=== PATIENT | female | born 1995 | race Caucasian/White ===

== ENCOUNTER → 2018-03-24 13:33 | Outpatient (CLI) | payer BC, MEDICAID, SELFPAY ==
[2018-03-24 14:31] LABS: Absolute Lymphocyte Count 1.61 X10^3/ul (0.83-4.51); Absolute Neutrophil Count 10.3 X10^3/uL (2.0-7.7); Basophil# 0.01 X10^3/uL; Basophil% 0.1 % (0-1); Eosinophil# 0.06 X10^3/uL; Eosinophils% 0.5 % (0-5); Hematocrit 41.2 % (37-47); Hemoglobin 13.4 g/dl (12.0-15.0); Lymphocyte # 1.61 X10^3/ul (4.0); Mean Corp Hgb Conc 32.5 g/gl (32-36); Mean Corpuscular Hgb 26.6 pg (27.0-32.0); Mean Corpuscular Volume 81.7 fL (81-99); Mean Platelet Vol. 9.4 fl (6.2-12.0); Monocyte# 0.45 X10^3/uL; Monocyte% 3.6 % (0-10); Neutrophil # 10.26 X10^3/uL (2.7-7.7); Neutrophil % 82.7 % (47-70); Platelet Count 271 K/mm3 (150-450); RBC Distribution Width CV 12.9 % (11.6-14.6); RBC Distribution Width SD 38.5 fl (35.1-43.9); Red Blood Count 5.04 M/mm3 (4.2-5.4); White Blood Count 12.4 K/mm3 (4.4-11.0)
[2018-03-24 14:32] LABS: POSITIVE COUNT NO; POSITIVE DIFFERENTIAL NO; POSITIVE MORPHOLOGY NO
[2018-03-24 15:52] LABS: HIV - WCH Non-Reactive (Nonreactive); Rubella IgG 57.6 IU/mL
[2018-03-24 17:52] LABS: Chlamydia Trachomatis by PCR Negative (Negative); Neisserai gonorrhoeae by PCR Negative (Negative); Probe Check PASS; Sample Adequacy Control PASS; Specimen Processing Control PASS
[2018-03-27 04:13] LABS: Rapid Plasmin Reagin (RPR) NONREACTIVE (NONREACTIVE)
[2018-03-27 15:14] LABS: HEPATITIS B SURFACE AG Negative (Negative)
[2018-03-28 14:00] LABS: HPV Reflexed? NOT INDICATED
== END ==
PROVIDERS: Referring Provider Obstetrics & Gynecology; Visit Provider Obstetrics & Gynecology
DX: Z34.90 Encounter for supervision of normal pregnancy, unspecified, unspecified trimester (principal); Z12.4 Encounter for screening for malignant neoplasm of cervix
CPT/HCPCS: 36415; 85025; 86592; 86703; 86762; 86850; 86900; 87086; 87340; 87491; 87591; 87624; 88175; G0145

== ENCOUNTER → 2018-05-22 15:59 | Outpatient (CLI) | payer BC, MEDICAID, SELFPAY ==
[2018-05-22 15:18] VITALS: BMI 31.3
[2018-06-29 12:07] LABS: AFP Value-EIA 43.6 ng/mL (.); DIA MoM Value 0.62 (.); DIA Value-EIA 96.17 pg/mL (.); DSR (By Age) 1067 (.); DSR (Second Trimester) 10000 (.); Insulin Dep Diabetes No (.); Maternal Age At EDD 24.1 yr (.); hCG MoM 0.34 (.); hCG Value 7987 mIU/mL (.)
== END ==
PROVIDERS: Referring Provider Obstetrics & Gynecology; Visit Provider Obstetrics & Gynecology
DX: Z36.89 Encounter for other specified antenatal screening (principal)
CPT/HCPCS: 36415; 82105; 82677; 84702; 86336

== ENCOUNTER 2018-06-03 16:45 | Outpatient (CLI) | payer MEDICAID, SELFPAY ==
[2018-05-22 15:18] VITALS: BMI 31.3
[2018-06-03 17:11] VITALS: BMI 32.3
== END 2018-06-03 17:40 | disposition home or self-care (01) ==
LOC: WPOUT 17:03 → WP 17:03
PROVIDERS: Referring Provider Obstetrics & Gynecology; Visit Provider Obstetrics & Gynecology
DX: R10.9 Unspecified abdominal pain (principal)
CPT/HCPCS: 59050; 99218; G0378

== ENCOUNTER 2018-06-03 17:45 | Emergency (ER) | payer BC, MEDICAID, SELFPAY ==
[2018-06-03 17:11] VITALS: BMI 32.3
[2018-06-03 17:48] VITALS: BP 90/60; PULSE 83; RESP 16; TEMP 36.3; O2SAT 99; BMI 32.3
--- NOTE | 2018-06-03 17:50 | EKG12_ITS ---
Test Reason : CP Blood Pressure : / mmHG Vent. Rate : 082 BPM Atrial Rate : 082 BPM P-R Int : 132 ms QRS Dur : 086 ms QT Int : 346 ms P-R-T Axes : 064 071 045 degrees QTc Int : 404 ms Normal sinus rhythm Normal ECG Confirmed by JONATHAN COSTA, KIRILL ([id number]), manuscript editor CHEMA ROJAS ([id number] on 06/05/2018 2:28:49 PM Referred By: PRABHJOT Confirmed By:KIRILL CASTILLO MD
--- NOTE | 2018-06-03 17:55 | NURSING ---
NO OLD EKGS
--- NOTE | 2018-06-03 18:27 | RAD_ITS ---
STUDY: X-RAY CHEST REASON FOR EXAM: Female, 22 years old. Chest pain. TECHNIQUE: Portable chest. COMPARISON: None. FINDINGS: The lungs are clear and expanded. There is no demonstrated pleural abnormality. Normal size heart. Normal mediastinum and zenon. Normal visualized pulmonary arteries. Normal visualized aortic arch and descending thoracic aorta. Normal visualized thoracic spine. Normal visualized ribs, clavicles, and shoulders. There is no demonstrated abnormality of the visualized soft tissue structures of the upper abdomen. RAD/Chest 1 View (Portable) IMPRESSION: Normal x-ray examination of the chest. Electronically Signed: Nuha Quiros MD at 19:28 EST Tel , Service support ,
[2018-06-03 18:30] LABS: Anion Gap 9 (5-15); BUN 10 mg/dL (7-18); BUN/Creat Ratio 14.9 RATIO (10-20); Calcium,Total 8.5 mg/dL (8.5-10.1); Chloride 105 mmol/L (98-107); Creatinine, Serum 0.67 mg/dL (0.55-1.02); EST Glomerular Filtration Rate 115 mL/min (>60); Est Glom Filt Rate - Afr Amer 139 mL/min (>60); Estimated Creatinine Clearance 108.03 ml/min; Glucose 91 mg/dL (74-106); Potassium 3.9 mmol/L (3.5-5.1); Sodium Level 138 mmol/L (136-145)
[2018-06-03 18:36] LABS: Absolute Lymphocyte Count 1.58 X10^3/ul (0.83-4.51); Absolute Neutrophil Count 10.2 X10^3/uL (2.0-7.7); Basophil# 0.01 X10^3/uL; Basophil% 0.1 % (0-1); Eosinophil# 0.12 X10^3/uL; Hematocrit 37.7 % (37-47); Lymphocyte # 1.58 X10^3/ul (4.0); Lymphocyte % 12.7 % (19-41); Mean Corp Hgb Conc 31.8 g/gl (32-36); Mean Corpuscular Hgb 26.5 pg (27.0-32.0); Mean Corpuscular Volume 83.2 fL (81-99); Mean Platelet Vol. 9.5 fl (6.2-12.0); Monocyte# 0.54 X10^3/uL; Monocyte% 4.3 % (0-10); Neutrophil % 81.6 % (47-70); Platelet Count 259 K/mm3 (150-450); RBC Distribution Width CV 13.1 % (11.6-14.6); RBC Distribution Width SD 39.6 fl (35.1-43.9); Red Blood Count 4.53 M/mm3 (4.2-5.4); White Blood Count 12.5 K/mm3 (4.4-11.0)
[2018-06-03 18:46] LABS: POSITIVE COUNT NO; POSITIVE DIFFERENTIAL NO; POSITIVE MORPHOLOGY NO
[2018-06-03 18:51] LABS: D-Dimer Quantitative (DVT/PE) 0.42 FEU/ug/m (0.27-0.49)
[2018-06-03 19:40] VITALS: BP 127/69; PULSE 83; RESP 11; O2SAT 100
--- NOTE | 2018-06-03 19:54 | US_ITS ---
STUDY: ABDOMINAL ULTRASOUND - RIGHT UPPER QUADRANT REASON FOR VISIT: Female, 22 years old. Right upper quadrant pain. 20 weeks . TECHNIQUE: Ultrasound evaluation of the right upper quadrant was performed with real-time and static lynch-scale imaging. TECHNICAL QUALITY: Adequate. COMPARISON: None. FINDINGS: Liver: The liver measures 15.3 cm. There is normal echogenicity of the liver. The bile ducts are within normal limits. There is hepatic color flow. The direction of portal flow is hepatopetal. There is no demonstrated mass lesion. Gallbladder: Normal distended gallbladder. The gallbladder wall measures 2 mm. There is a negative sonographic Segura's sign. There is no pericholecystic fluid. There are no gallstones. Common Bile Duct (C.B.D.): The common bile duct measures 3 mm. Pancreas: Normal size of the head, body and tail of the pancreas. There is normal echogenicity of the pancreas. There is no demonstrated pancreatic mass or cyst. Right Kidney: Normal size of the right kidney. The right kidney measures 10.2 cm. Normal renal cortex. The right cortex measures 1.4 cm. There is no demonstrated renal mass or cyst. There is no right hydronephrosis. US/Gallbladder IMPRESSION: Normal right upper quadrant ultrasound examination. Electronically Signed: Jose Marie DO at 21:23 EST Tel [phone], Service support ,
--- NOTE | 2018-06-03 20:15 | ED.VISSUMM ---
- ER Visit Summary Date of Service: 06/03/18 Chief Complaint: Abdominal pain History of Present Illness: The patient is a 22 F presenting with epigastric and right upper quadrant abdominal pain. She states that this started 1 month ago. States it progressively worsened over the past 2 days. She has had nausea and vomiting. She denies fever. She states it is worse with eating. She is 20 weeks . She went to OB triage. She states they checked the baby and everything looked okay. She was sent to the ED for further evaluation. She is . She denies vaginal bleeding. Denies other complaints. Physical Examination: Vitals are stable. Patient is afebrile. Alert no acute distress. Pulse ox 100% on room air. HEENT exam is unremarkable. Neck is supple. Lungs are clear and equal bilaterally. Heart is regular rate and rhythm. Abdomen is soft gravid with epigastric and right upper quadrant tenderness, no rebound or guarding Extremities are unremarkable. Skin is warm and dry. Remainder of exam is unremarkable. Emergency Department Course and Treatment: She is not tachycardic or hypoxic. EKG is sinus rate of 82. Chest x-ray shows no acute process. CBC shows white count 12.5. Chemistries unremarkable. Liver lipase are normal. Troponin is negative. D-dimer is normal. heart tones 144. Gallbladder ultrasound shows no acute process. On reevaluation, patient is resting comfortably. She is given prescription for Zofran. Discussed with Dr. Ledbetter who agrees with outpatient follow-up. She is advised to follow-up with her [employer]. She is advised to return to ED if worsening complaints. Disposition: Discharge home Impression: Abdominal pain, This note was generated with [employer] dictation software. It may contain incorrect words, spelling, and punctuation that were not noted in review of the chart prior to signing ED Disposition - Plan for ED Patient: Chief Complaint: Chest Pain Instructions: ED Abdominal Pain Unkn Cause Prescriptions: Ondansetron [Zofran Odt] 4 mg PO Q8H PRN PRN #10 tablet PRN Reason: Nausea Referrals: Lynette Ledbetter MD [STAFF PHYSICIAN] -
[2018-06-03 20:57] LABS: AST(SGOT) 17 U/L (15-37); Alanine Aminotransfer ALT/SGPT 32 U/L (13-56); Albumin, Serum 3.2 g/dL (3.2-5.0); Alkaline Phosphatase 74 U/L (45-117); Bilirubin, Direct < 0.05 mg/dL (0.00-0.30); Globulin 3.9 g/dL (2.2-4.2); Lipase 110 U/L (73-393); Protein, Total 7.1 g/dL (6.4-8.2)
[2018-06-03 21:25] VITALS: BP 116/76; PULSE 71; RESP 16; O2SAT 97
--- NOTE | 2018-06-03 22:13 | ED.DEP ---
ED Disposition - Plan for ED Patient: Chief Complaint: Chest Pain Instructions: ED Abdominal Pain Unkn Cause Prescriptions: Ondansetron [Zofran Odt] 4 mg PO Q8H PRN PRN #10 tablet PRN Reason: Nausea Referrals: Lynette Ledbetter MD [STAFF PHYSICIAN] -
[2018-06-03 22:30] VITALS: BP 114/62; PULSE 83; RESP 16; O2SAT 100
--- NOTE | 2018-06-11 04:01 | OB.TRI.NOTE ---
- Problem List (1) Abdominal pain affecting Status: Acute History of Present Illness Date of Service: 06/03/18 Was patient seen by the physician?: No Reason For Visit: CP Date of Service: 06/03/18 Final OJ: 10/21/18 Gestational age: 21 Weeks and 1 Days History of Present Illness: co abdominal pain seen in er Allergies tramadol Allergy (Mild, Verified 06/03/18 17:47) Unknown Laboratory Studies: Laboratory Tests 06/03/18 06/03/18 06/03/18 Range/Units 16:05 16:05 16:05 WBC (4.4-11.0) K/mm3 RBC (4.2-5.4) M/mm3 Hgb (12.0-15.0) g/dl Hct (37-47) % MCV (81-99) fL MCH (27.0-32.0) pg MCHC (32-36) g/gl RDW (11.6-14.6) % RDW Differential (35.1-43.9) fl Plt Count (150-450) K/mm3 MPV (6.2-12.0) fl Immature Gran % (Auto) (0.0-0.9) % Neut % (Auto) (47-70) % Lymph % (Auto) (19-41) % Mingo % (Auto) (0-10) % Eos % (Auto) (0-5) % Baso % (Auto) (0-1) % Absolute Neuts (auto) (2.0-7.7) X10^3/uL Absolute Lymphs (auto) (0.83-4.51) X10^3/ul Total Counted D-Dimer Quant (PE/DVT) 0.42 (0.27-0.49) FEU/ug/m Sodium 138 (136-145) mmol/L Potassium 3.9 (3.5-5.1) mmol/L Chloride 105 (98-107) mmol/L Carbon Dioxide 24.0 (21.0-32.0) mmol/L Anion Gap 9 (5-15) BUN 10 (7-18) mg/dL Creatinine 0.67 (0.55-1.02) mg/dL Estim Creat Clear Calc 108.03 ml/min Est GFR (MDRD) Af Amer 139 (>60) mL/min Est GFR (MDRD) Non-Af 115 (>60) mL/min BUN/Creatinine Ratio 14.9 (10-20) RATIO Glucose 91 (74-106) mg/dL Calcium 8.5 (8.5-10.1) mg/dL Total Bilirubin 0.20 (0.20-1.00) mg/dL Direct Bilirubin < 0.05 (0.00-0.30) mg/dL AST 17 (15-37) U/L ALT 32 (13-56) U/L Alkaline Phosphatase 74 (45-117) U/L Troponin I < 0.015 (<0.045) ng/mL Total Protein 7.1 (6.4-8.2) g/dL Albumin 3.2 (3.2-5.0) g/dL Globulin 3.9 (2.2-4.2) g/dL Lipase 110 (73-393) U/L 06/03/18 Range/Units 16:05 WBC 12.5 H (4.4-11.0) K/mm3 RBC 4.53 (4.2-5.4) M/mm3 Hgb 12.0 (12.0-15.0) g/dl Hct 37.7 (37-47) % MCV 83.2 (81-99) fL MCH 26.5 L (27.0-32.0) pg MCHC 31.8 L (32-36) g/gl RDW 13.1 (11.6-14.6) % RDW Differential 39.6 (35.1-43.9) fl Plt Count 259 (150-450) K/mm3 MPV 9.5 (6.2-12.0) fl Immature Gran % (Auto) 0.300 (0.0-0.9) % Neut % (Auto) 81.6 H (47-70) % Lymph % (Auto) 12.7 L (19-41) % Mingo % (Auto) 4.3 (0-10) % Eos % (Auto) 1.0 (0-5) % Baso % (Auto) 0.1 (0-1) % Absolute Neuts (auto) 10.2 H (2.0-7.7) X10^3/uL Absolute Lymphs (auto) 1.58 (0.83-4.51) X10^3/ul Total Counted Not Reportable D-Dimer Quant (PE/DVT) (0.27-0.49) FEU/ug/m Sodium (136-145) mmol/L Potassium (3.5-5.1) mmol/L Chloride (98-107) mmol/L Carbon Dioxide (21.0-32.0) mmol/L Anion Gap (5-15) BUN (7-18) mg/dL Creatinine (0.55-1.02) mg/dL Estim Creat Clear Calc ml/min Est GFR (MDRD) Af Amer (>60) mL/min Est GFR (MDRD) Non-Af (>60) mL/min BUN/Creatinine Ratio (10-20) RATIO Glucose (74-106) mg/dL Calcium (8.5-10.1) mg/dL Total Bilirubin (0.20-1.00) mg/dL Direct Bilirubin (0.00-0.30) mg/dL AST (15-37) U/L ALT (13-56) U/L Alkaline Phosphatase (45-117) U/L Troponin I (<0.045) ng/mL Total Protein (6.4-8.2) g/dL Albumin (3.2-5.0) g/dL Globulin (2.2-4.2) g/dL Lipase (73-393) U/L Physical Exam Vitals: Vital Signs Temp Pulse Resp BP Pulse Ox 97.4 F L 83 16 114/62 100 06/03/18 17:48 06/03/18 22:30 06/03/18 22:30 06/03/18 22:30 06/03/18 22:30 NST - FHR Rate Baby A Baseline: 140 Variability:: Moderate Accelerations:: 15 x 15 Decelerations:: None NST Reactive:: Yes FHR Category:: Category I Uterine Activity:: no regular ctx Impression/Plan abdominal pain no labor dc home reassuring status
== END 2018-06-03 22:30 | disposition home or self-care (01) ==
LOC: ED 21:02
PROVIDERS: Emergency Provider Emergency Medicine
DX: O26.892 Other specified pregnancy related conditions, second trimester (principal); R10.11 Right upper quadrant pain; R10.13 Epigastric pain; O21.2 Late vomiting of pregnancy; Z3A.20 20 weeks gestation of pregnancy
CPT/HCPCS: 59050; 71045; 76705; 80048; 80076; 83690; 84484; 85025; 85379; 93005; 99218; 99284; G0378

== ENCOUNTER → 2018-06-24 16:10 | Outpatient (CLI) | payer MEDICAID, SELFPAY ==
[2018-06-24 10:58] VITALS: BMI 32.3
[2018-06-24 17:33] LABS: Absolute Lymphocyte Count 1.63 X10^3/ul (0.83-4.51); Basophil# 0.02 X10^3/uL; Basophil% 0.2 % (0-1); Eosinophils% 0.8 % (0-5); Hematocrit 36.7 % (37-47); Hemoglobin 11.6 g/dl (12.0-15.0); Lymphocyte # 1.63 X10^3/ul (4.0); Lymphocyte % 13.3 % (19-41); Mean Corp Hgb Conc 31.6 g/gl (32-36); Mean Corpuscular Hgb 26.6 pg (27.0-32.0); Mean Corpuscular Volume 84.2 fL (81-99); Mean Platelet Vol. 10.1 fl (6.2-12.0); Monocyte# 0.47 X10^3/uL; Monocyte% 3.8 % (0-10); Neutrophil # 9.95 X10^3/uL (2.7-7.7); Neutrophil % 81.3 % (47-70); Platelet Count 286 K/mm3 (150-450); RBC Distribution Width CV 12.8 % (11.6-14.6); RBC Distribution Width SD 38.6 fl (35.1-43.9); Red Blood Count 4.36 M/mm3 (4.2-5.4); White Blood Count 12.2 K/mm3 (4.4-11.0)
[2018-06-24 17:37] LABS: POSITIVE COUNT NO; POSITIVE DIFFERENTIAL NO; POSITIVE MORPHOLOGY NO
[2018-06-24 18:49] LABS: HIV - WCH Non-Reactive (Nonreactive); Rubella IgG 55.2 IU/mL
[2018-06-26 01:11] LABS: Rapid Plasmin Reagin (RPR) NONREACTIVE (NONREACTIVE)
[2018-06-26 11:12] LABS: HEPATITIS B SURFACE AG Negative (Negative)
--- OUTSIDE RECORDS SUMMARY | 2018-08-26 18:41 | XMS RPT_ITS ---
:1995 Author Organization OHIP Support Name Relationship Address Phone TARYN COYNE Unavailable Unavailable + [place] [address] ROSELINE BARTHOLOMEW Unavailable [address] + [place] [address] UE Unavailable Unavailable Unavailable DORETHA TARYN Unavailable 0 + [place] [address] ROSELINE BARTHOLOMEW Unavailable [address] + [place] [address] UE Unavailable Unavailable Unavailable UZMA COYNEANNE Unavailable Unavailable + [place] [address] ROSELINE BARTHOLOMEW Unavailable [address] + [place] [address] UE Unavailable Unavailable Unavailable DORETHA, TARYN Unavailable 0 + [place] [address] ROSELINE BARTHOLOMEW Unavailable [address] + [place] [address] UE Unavailable Unavailable Unavailable UZMA COYNEANNE Unavailable Unavailable + [place] [address] ROSELINE BARTHOLOMEW Unavailable [address] + [place] [address] UE Unavailable Unavailable Unavailable DORETHA, TARYN Unavailable 0 + [place] [address] ROSELINE BARTHOLOMEW Unavailable [address] + [place] [address] UE Unavailable Unavailable Unavailable DORETHA, TARYN Unavailable [address] + [place] [address] ROSELINE BARTHOLOMEW Unavailable [address] + [place] [address] UE Unavailable Unavailable Unavailable COYNE TARYN Unavailable [address] + [place] [address] ROSELINE BARTHOLOMEW Unavailable [address] + [place] [address] UE Unavailable Unavailable Unavailable COYNE, TARYN Unavailable [address] + [place] [address] ROSELINE BARTHOLOMEW Unavailable [address] + [place] [address] UE Unavailable Unavailable Unavailable COYNE, TARYN Unavailable [address] + [place] [address] UE Unavailable Unavailable Unavailable NOT GIVEN Unavailable Unavailable Unavailable ROSELINE BARTHOLOMEW Unavailable Unavailable + [facility] Unavailable [address] + [place] [address] COYNE, UZMA Unavailable [address] + [place] [address] COYNE, UZMA Unavailable [address] + [place] [address] [facility] Unavailable [address] + [place] [address] COYNE, UZMA Unavailable [address] + [place] [address] COYNE, UZMA Unavailable [address] + [place] [address] Care Team Providers Name Role Phone Lynette Ledbetter Attending Unavailable Primay Care Physicia, No Referring Unavailable Lynette Ledbetter Attending Unavailable Lynette Ledbetter Referring Unavailable Primay Care Physicia, No Primary Care Unavailable Lynette Ledbetter Attending Unavailable Lynette Ledbetter Referring Unavailable Primay Care Physicia, No Primary Care Unavailable Primay Care Physicia, No Primary Care Unavailable Katina Morillo Attending Unavailable Lynette Ledbetter Attending Unavailable Primay Care Physicia, No Primary Care Unavailable Lynette Ledbetter Attending Unavailable Primay Care Physicia, No Referring Unavailable Lynette Ledbetter Attending Unavailable Lynette Ledbetter Referring Unavailable Primay Care Physicia, No Primary Care Unavailable Marcanthony, Lynette Attending Unavailable Primay Care Physicia, No Referring Unavailable [place], Michelle Attending Unavailable Primay Care Physicia, No Referring Unavailable [place], Michelle Attending Unavailable Natalia, Michelle Referring Unavailable Primay Care Physicia, No Primary Care Unavailable KEANE, MIGUEL A. Primary Care Unavailable GUERA.CH Attending Unavailable GUERA.CH Attending Unavailable MIGUEL KEANE A. Primary Care Unavailable ELVIN, DR ARIK Bradshaw Admitting Unavailable OCONNOR, DR ARIK Bradshaw Attending Unavailable OCONNOR, DR ARIK Bradshaw Primary Care Unavailable NO, DOCTOR ON Consulting Unavailable NO, DOCTOR ON Referring Unavailable JUAN AGUILAR Attending Unavailable LEOBARDO PAULSON Attending Unavailable KAYANTHONY, LYNETTE E Referring Unavailable NO PRIMARY CARE, Primary Care Unavailable PROBLEMS PROBLEMS DATE TYPE CONDITION / CODE ATTENDING STATUS SOURCE 06/24/2018 Unknown R10.9 - Unspecified [place], Active [place] abdominal pain / [facility] R10.9(ICD-10) Hospital Repository 06/24/2018 Unknown Z36.89 - Encounter Marcanthony, Active [place] for other specified [facility] screening Hospital / Z36.89(ICD-10) Repository 05/22/2018 Unknown Z34.01 - Encounter Marcanthony, Active [place] for supervision of [facility] normal first Hospital , first Repository trimester / Z34.01(ICD-10) 05/22/2018 Unknown Z3A.18 - 18 weeks Marcanthony, Active [place] gestation of [facility] / Hospital Z3A.18(ICD-10) Repository 04/30/2018 Unknown Z3A.15 - 15 weeks [facility] [place] gestation of [facility] / Hospital Z3A.15(ICD-10) Repository 03/25/2018 Unknown Z34.90 - Encounter Marcanthony, Active [place] for supervision of [facility] normal , Hospital unspecified, Repository unspecified trimester / Z34.90(ICD-10) 03/25/2018 Unknown Z12.4 - Encounter Marcanthony, Active [place] for screening for [facility] malignant neoplasm Hospital of cervix / Repository Z12.4(ICD-10) 09/11/2017 Admitting Unknown / LAUREN, Active [facility] diagnosis UNK(Unknown) JUAN [facility] Repository 05/18/2018 Working LOWER ABDOMINAL GUERA.CH Active [place] diagnosis PAIN, UNSPECIFIED / [facility] R10.30(ICD-10) Hospital Repository 05/18/2018 Working OTHER SPECIFIED GUERA.CH Active [place] diagnosis POSTPROCEDURAL [facility] / Hospital Z98.890(ICD-10) Repository 05/18/2018 Working ALLERGY STATUS TO GUERA.CH Active [place] diagnosis NARCOTIC AGENT [facility] / Hospital Z88.5(ICD-10) Repository PROCEDURES PROCEDURES No Procedure Records FoundRESULTS RESULTS CBC W/DIFF, AUTOMATED Collected: 06/24/2018 Status: F Source: [place] 4:21 PM [facility] REPOSITORY TYPE CODE TESTS RESULT OUT OF RANGE REFERENCE UNITS LAB L100.1000 4.4-11.0 K/mm3 High WBC 12.2 LAB L100.1200 4.2-5.4 M/mm3 Normal RBC 4.36 LAB L100.1300 12.0-15.0 g/dl Low HGB 11.6 LAB L100.1400 37-47 % Low HCT 36.7 LAB L100.1500 81-99 fL Normal MCV 84.2 LAB L100.1600 27.0-32.0 pg Low MCH 26.6 LAB L100.1700 32-36 g/gl Low MCHC 31.6 LAB L100.1810 11.6-14.6 % Normal RDW CV 12.8 LAB L100.1820 35.1-43.9 fl Normal RDW SD 38.6 LAB L100.1900 150-450 K/mm3 Normal PLT 286 LAB L100.2000 6.2-12.0 fl Normal MPV 10.1 LAB L100.2100 47-70 % High NEUT% 81.3 LAB L100.2200 19-41 % Low LY% 13.3 LAB L100.2300 0-10 % Normal MONO% 3.8 LAB L100.2400 0-5 % Normal EO% 0.8 LAB L100.2500 0-1 % Normal BASO% 0.2 LAB L100.2550 0.0-0.9 % Normal IM GRAN % 0.600 Result Comment: IG% - Immature Granulocytes (promyelocytes, myelocytes and metamyelocytes) > 1% indicates that a LEFT SHIFT is Present. LAB L100.2620 2.0-7.7 X10 3/uL High Absolute Neut 10.0 LAB L100.2720 0.83-4.51 X10 3/ul Normal Absolute Lymph 1.63 Performed By: #### L100.0100 #### [facility] [address] [facility] [facility] [place], [place], [id number] TYPE AND SCREEN Collected: 06/24/2018 Status: F Source: [place] 4:21 PM [facility] REPOSITORY Order Comment: Reason for Type AND Screen/Red Cells: TYPE CODE TESTS RESULT OUT OF RANGE REFERENCE UNITS LAB B10.0800 O Normal BLOOD TYPE GEL POSITIVE LAB B100.4000 Normal Antibody NEGATIVE Screen Performed By: #### B101.7450 #### [facility] [place], [address] RUBELLA IGG Collected: 06/24/2018 Status: F Source: [place] 4:21 PM [facility] REPOSITORY TYPE CODE TESTS RESULT OUT OF RANGE REFERENCE UNITS LAB L509.4000 IU/mL Normal Rubella IgG 55.2 Result Comment: Antibody results Interpretation of Immune Status < 5 IU/ml Presumed Non-immune 5 - < 10 IU/ml Equivocal > or = 10 IU/ml Presumed Immune Performed By: #### L509.4000, L3890.6005 #### [facility] [facility]. [facility] [id number] HIV - [facility] Collected: 06/24/2018 Status: F Source: [place] 4:21 PM [facility] REPOSITORY TYPE CODE TESTS RESULT OUT OF RANGE REFERENCE UNITS LAB L3890.6005 Nonreactive Normal HIV - [facility] Non-Reactive Performed By: #### L509.4000, L3890.6005 #### [facility] [facility] [address] [facility] [address] RAPID PLASMIN REAGIN Collected: 06/24/2018 Status: F Source: [place] (RPR) 4:21 PM [facility] REPOSITORY TYPE CODE TESTS RESULT OUT OF REFERENCE UNITS RANGE LAB L700.5000 NONREACTIVE NONREACTIVE Normal RPR Performed By: #### L700.5000 #### [facility] [address] [place], [place], [id number] HEPATITIS B SURFACE Collected: 06/24/2018 Status: F Source: [place] AG 4:21 PM [facility] REPOSITORY TYPE CODE TESTS RESULT OUT OF RANGE REFERENCE UNITS LAB L3100.0400 Negative Normal HB Negative SURF AG Result Comment: Performed at: - [facility] [id number] Campus Dean: Darren Soliman PhD, Phone: [phone] Performed By: #### L3100.0390 #### [facility] (refer to report for specific site) refer to report for address and phone number DIGESTION OPERATOR OFFICE VISIT Observed: 06/24/2018 Status: F Source: [place] REPORT 11:11 AM [facility] REPOSITORY [facility] [address] [place] [address] OFFICE VISIT Date of Service: 06/24/18 MR#: [id number] Acct: [id number] Name: DORETHAANKUR L Rep #: [id number] : 1995 Provider: KURT Fisher Age/Sex: 22/F Location: [facility] Status: Signed Intake Vital Signs06/24/18 Body Mass Index (BMI) 32.3 06/24/18 Height 5 ft 3 in 06/24/18 Weight: 184 lb 8 oz 06/24/18 Body Mass Index (BMI) 32.6 06/24/18 Blood Pressure 110/74 Intake Visit Reasons: 22 weeks Slipcover Cutter Required: No Accompanied by: mother Is patient in pain?: No Allergies tramadol Allergy (Mild, Verified 06/24/18 10:46) Unknown Medications ondansetron HCl 4 mg tablet 4 mg PO BID-TID PRN #60 tab 05/22/18 [Rx Confirmed 06/24/18] vitamin#30 30 mg iron-10 mg iron-folic acid 1 mg- omg3 capsule 1 cap PO DAILY cap 05/22/18 [History Confirmed 06/24/18] Ondansetron [Zofran Odt] 4 mg PO Q8H PRN PRN #10 tab 06/03/18 [Rx Confirmed 06/24/18] Last Menstral Period: 01/14/18 Zika: Zika virus screening: Negative : No PFSH PFSH Family History Grandfather Diabetes Myocardial infarction CVA (cerebral vascular accident) Social History Smoking Status: Never smoker alcohol intake: never substance use type: does not use caffeine: Yes what type of physical activity do you participate in: walking seatbelt use: always do you feel safe at home: Yes additional social history: Mony Ojeda Patient is currently unemployed Pregancy History 1 Elective abortions Hx Para Spontaneous abortions HPI 22 weeks: Details: ANKUR COYNE is a 22 year old who presents for routine OB visit. OB Visit OJ Calculator Estimated Delivery Date 10/21/18 Based on LMP (uncertain) 01/14/18 Current WG 23w 0d Number 1 Expected Delivery Route/Plan Specific Issue/Plans flu vaccine: declines tdap vaccine: [] rhogam: NA LARC form signed: declines labor support person: Roseline pain management: epidural cut cord/dad catch: cord : yes PP control planned: [] special requests: [] Initial Weight: 177 lb Date Weight BP Urine PrFHR FuHt Pres MoCTX DilationFetal StVisit NoProviderComments E ot v te GA G Effac lucose ed Visit Notes Visit Date: 06/24/18 No VB, LOF. Acid reflux worsening. Michelle Fisher NP-Leeann on 06/24/18 Visit Date: 05/22/18 no vb cramping Lynette Ledbetter MD on 05/22/18 Visit Date: 04/30/18 nausea improved no vb cramping Lynette Ledbetter MD on 04/30/18 Diagnostics Diagnostics Labs Blood Type O POSITIVE 03/24/18 Antibody Screen NEGATIVE 03/24/18 Hct 37.7 % (37-47) 06/03/18 Hgb 12.0 g/dl (12.0-15.0) 06/03/18 Rubella IgG Antibody 57.6 IU/mL 03/24/18 RPR NONREACTIVE (NONREACTIVE) 03/24/18 Hep Bs Antigen Negative (Negative) 03/24/18 Chlam trachomat DNA PCR Negative (Negative) 03/24/18 N.gonorrhoeae DNA (PCR) Negative (Negative) 03/24/18 Details: HIV: Urine Culture: Sequential Screen: NIPT Screen: ROS Const Reports system reviewed and no additional complaints, except as docu GI Denies nausea, Denies vomiting, Denies abdominal pain Exam Const General: cooperative Nutritional Appearance: well nourished GI Palpation: soft, nontender, other (gravid) Results BMSUA2 Office Urine Glucose Negative Last Edit by Natasha Loomis on 06/24/18 10:59 Office Urine Protein Negative Last Edit by Natasha Loomis on 06/24/18 10:59 Assessment AND Plan Problems 1. Encounter for supervision of normal first in first trimester Z34.01 PRR OJ 10/21/18 Candelaria Tom Fiance:Roseline Bartholomew 2. 23 weeks gestation of Z3A.23 quad screen planned. carrier screening declined. anatomy scan ordered. Plan Orders placed: none Try pepcid for reflux Reviewed of labor precautions, movement/kick counts ACOG trimester education reviewed and updated See problem list details for updated plan of care Gestational age appropriate handout given RTO: 4 weeks Orders Orders: Coding Level of Care Code Off vis,est,level 3 Diagnoses Encounter for supervision of normal first in first trimester Z34.01 Trimester: first trimester 23 weeks gestation of Z3A.23 Weeks of gestation: 23 weeks 06/24/18 1111 <Electronically signed by Michelle LANE> Date Michelle LANE Cosigner Signature: Date (if applicable) CC: 12 LEAD ELECTROCARDIOGRAM Observed: 06/05/2018 Status: F Source: [place] 2:29 PM [facility] REPOSITORY [facility] Cardiovascular Services [address] [place] [address] 12 Lead EKG 06/03/18 1808 MR#: [id number] Acct: [id number] Name: ANKUR COYNE Rep #: [id number] : 1995 22 From: Mervin Castillo MD Attending Dr: Status: DEP ER Ordering Dr: Katina Morillo MD Date: 06/03/18 Location: ED Sex: F C Admitted: Test Reason : CP Blood Pressure : / mmHG Vent. Rate : 082 BPM Atrial Rate : 082 BPM P-R Int : 132 ms QRS Dur : 086 ms QT Int : 346 ms P-R-T Axes : 064 071 045 degrees QTc Int : 404 ms Normal sinus rhythm Normal ECG Confirmed by JONATHAN COSTA, MERVIN ([id number]), photograph editor CHEMA ROJAS ([id number]) on 06/05/2018 2:28:49 PM Referred By: PRABHJOT Confirmed By:MERVIN CASTILLO MD 06/05/18 1428 Date Mervin Castillo MD CC: No Primary Care Physician; Katina Morillo MD Signed EMERGENCY DEPARTMENT Observed: 06/03/2018 Status: F Source: [place] SUMMARY 10:18 PM [facility] REPOSITORY [facility] Medical Records Department [address] [place] [address] Emergency Department Summary 06/03/182014 MR#: [id number] Acct: [id number] Name: ANKUR COYNE Rep #: [id number] : 1995 22 From: Katina Morillo MD PCP: Care Physician, No Primary Status: REG ER - ER Visit Summary Date of Service: 06/03/18 Chief Complaint: Abdominal pain History of Present Illness: The patient is a 22 F presenting with epigastric and right upper quadrant abdominal pain. She states that this started 1 month ago. States it progressively worsened over the past 2 days. She has had nausea and vomiting. She denies fever. She states it is worse with eating. She is 20 weeks . She went to OB triage. She states they checked the baby and everything looked okay. She was sent to the ED for further evaluation. She is . She denies vaginal bleeding. Denies other complaints. Physical Examination: Vitals are stable. Patient is afebrile. Alert no acute distress. Pulse ox 100% on room air. HEENT exam is unremarkable. Neck is supple. Lungs are clear and equal bilaterally. Heart is regular rate and rhythm. Abdomen is soft gravid with epigastric and right upper quadrant tenderness, no rebound or guarding Extremities are unremarkable. Skin is warm and dry. Remainder of exam is unremarkable. Emergency Department Course and Treatment: She is not tachycardic or hypoxic. EKG is sinus rate of 82. Chest x-ray shows no acute process. CBC shows white count 12.5. Chemistries unremarkable. Liver lipase are normal. Troponin is negative. D-dimer is normal. heart tones 144. Gallbladder ultrasound shows no acute process. On reevaluation, patient is resting comfortably. She is given prescription for Zofran. Discussed with Dr. Ledbetter who agrees with outpatient follow-up. She is advised to follow-up with her DIGESTION OPERATOR. She is advised to return to ED if worsening complaints. Disposition: Discharge home Impression: Abdominal pain, This note was generated with [employer] dictation software. It may contain incorrect words, spelling, and punctuation that were not noted in review of the chart prior to signing ED Disposition - Plan for ED Patient: Chief Complaint: Chest Pain Instructions: ED Abdominal Pain Unkn Cause Prescriptions: Ondansetron [Zofran Odt] 4 mg PO Q8H PRN PRN #10 tablet PRN Reason: Nausea Referrals: Lynette Ledbetter MD [STAFF PHYSICIAN] - What to do if you have Problems For any increased pain, shortness of breath, bleeding, nausea or vomiting, chest pain, or any unexpected problems, contact your Primary Care Provider. Call [facility] ([phone]) or report to the closest Emergency Room. Call 911 if necessary. 06/03/18 5569 <Electronically signed by Katina Morillo MD> Date Katina Morillo MD Cosigner Signature (If Indicated): Date CC: No Primary Care Physician DISCHARGE INSTRUCTION Observed: 06/03/2018 Status: F Source: [place] 10:13 PM [facility] REPOSITORY [facility] Medical Records Department [address] [place] [address] Discharge Instruction 06/03/182212 MR#: [id number] Acct: [id number] Name: ANKUR COYNE Rep #: [id number] : 1995 22 From: Katina Morillo MD PCP: Care Physician, No Primary Status: REG ER ED Disposition - Plan for ED Patient: Chief Complaint: Chest Pain Instructions: ED Abdominal Pain Unkn Cause Prescriptions: Ondansetron [Zofran Odt] 4 mg PO Q8H PRN PRN #10 tablet PRN Reason: Nausea Referrals: Lynette Ledbetter MD [STAFF PHYSICIAN] - What to do if you have Problems For any increased pain, shortness of breath, bleeding, nausea or vomiting, chest pain, or any unexpected problems, contact your Primary Care Provider. Call [facility] ([phone]) or report to the closest Emergency Room. Call 911 if necessary. 06/03/182212 <Electronically signed by Katina Morillo MD> Date Katina Morillo MD Cosigner Signature (If Indicated): Date CC: No Primary Care Physician GALLBLADDER Observed: 06/03/2018 Status: F Source: [place] 7:54 PM [facility] REPOSITORY [facility] Imaging Services [address] [place] [address] Gallbladder MR#: [id number] Acct: [id number] Name: MARIE COYNEDEON Cardona Rep #: [id number] : 1995 F 22 From: Jose Marie DO PCP: Care Physician, No Primary Status: REG ER Study: Gallbladder Date of Exam: 06/03/18 Exam# [id number] Ordering Dr: Katina Morillo MD STUDY: ABDOMINAL ULTRASOUND - RIGHT UPPER QUADRANT REASON FOR VISIT: Female, 22 years old. Right upper quadrant pain. 20 weeks . TECHNIQUE: Ultrasound evaluation of the right upper quadrant was performed with real-time and static lynch-scale imaging. TECHNICAL QUALITY: Adequate. COMPARISON: None. FINDINGS: Liver: The liver measures 15.3 cm. There is normal echogenicity of the liver. The bile ducts are within normal limits. There is hepatic color flow. The direction of portal flow is hepatopetal. There is no demonstrated mass lesion. Gallbladder: Normal distended gallbladder. The gallbladder wall measures 2 mm. There is a negative sonographic Segura's sign. There is no pericholecystic fluid. There are no gallstones. Common Bile Duct (C.B.D.): The common bile duct measures 3 mm. Pancreas: Normal size of the head, body and tail of the pancreas. There is normal echogenicity of the pancreas. There is no demonstrated pancreatic mass or cyst. Right Kidney: Normal size of the right kidney. The right kidney measures 10.2 cm. Normal renal cortex. The right cortex measures 1.4 cm. There is no demonstrated renal mass or cyst. There is no right hydronephrosis. US/Gallbladder IMPRESSION: Normal right upper quadrant ultrasound examination. Electronically Signed: Jose Marie DO at 21:23 EST Tel [phone], Service support , CC: No Primary Care Physician; Katina Morillo MD Mba Internship: Signed CHEST 1 VIEW Observed: 06/03/2018 Status: F Source: [place] (PORTABLE) 5:51 PM [facility] REPOSITORY [facility] Imaging Services [facility] [place] [address] Chest 1 View (Portable) MR#: [id number] Acct: [id number] Name: ANKUR COYNE Rep #: [id number] : 1995 F 22 From: Nuha Quiros MD PCP: Lynette Ledbetter MD Status: PRE ER Study: Chest 1 View (Portable) Date of Exam: 06/03/18 Exam# [id number] Ordering Dr: Provider,Ed P. STUDY: X-RAY CHEST REASON FOR EXAM: Female, 22 years old. Chest pain. TECHNIQUE: Portable chest. COMPARISON: None. FINDINGS: The lungs are clear and expanded. There is no demonstrated pleural abnormality. Normal size heart. Normal mediastinum and zenon. Normal visualized pulmonary arteries. Normal visualized aortic arch and descending thoracic aorta. Normal visualized thoracic spine. Normal visualized ribs, clavicles, and shoulders. There is no demonstrated abnormality of the visualized soft tissue structures of the upper abdomen. RAD/Chest 1 View (Portable) IMPRESSION: Normal x-ray examination of the chest. Electronically Signed: Nuha Quiros MD at 19:28 EST Tel , Service support , CC: ED PHYSICIAN PROVIDER; Lynette Ledbetter MD Mba Internship: Signed BASIC METABOLIC Collected: 06/03/2018 Status: F Source: [place] PROFILE (BMP) 4:05 PM [facility] REPOSITORY TYPE CODE TESTS RESULT OUT OF RANGE REFERENCE UNITS LAB L501.0100 74-106 mg/dL Normal GLU 91 Result Comment: Please note revised GLUCOSE reference range effective 2017. LAB L501.1000 7-18 mg/dL Normal BUN 10 LAB L501.1100 0.55-1.02 mg/dL Normal CREAT,SERUM 0.67 Result Comment: The validity of the calculated GFR AND GFRAA in patients over 70 years has not been determined. Clinical correlation is essential. LAB L501.1110 >60 mL/min Normal EST GFR 115 Result Comment: Non- GFR Calc LAB L501.1115 >60 mL/min Normal EST GFR - AA 139 Result Comment: GFR Calc LAB L501.1255 ml/min Normal Estimated CRCL 108.03 LAB L501.1300 10-20 RATIO BUN/CRE Normal 14.9 LAB L501.2200 8.5-10 mg/dL .1 CA Normal 8.5 LAB L501.5300 136-14 mmol/L 5 NA Normal 138 LAB L501.5600 3.5-5. mmol/L 1 K Normal 3.9 LAB L501.5900 98-107 mmol/L CL Normal 105 LAB L501.6100 21.0-3 mmol/L 2.0 CO2 Normal 24.0 LAB L501.6200 5-15 GAP Normal 9 Performed By: #### L500.2500, L501.4010 #### [facility] [address] [place], [place], [address] TROPONIN-I Collected: 06/03/2018 Status: F Source: [place] 4:05 PM [facility] REPOSITORY TYPE CODE TESTS RESULT OUT OF RANGE REFERENCE UNITS LAB L501.4010 <0.045 ng/mL Normal < 0.015 TROPONIN-I Result Comment: TROPONIN-I EXPECTED VALUES <0.045 Negative 0.045 - 0.590 Consistent with Cardiac Damage > OR = 0.600 Critical Value Not every elevated troponin is indicative of CO. These values should be used with clinical judgement in examining the patient's clinical picture for diagnosis. To establish a diagnosis of CO versus myocardial injury, there must be a demonstrated rise and/or fall in the troponin values, in addition to ischemic symptoms, EKG changes, new regional wall motion abnormality, and/or angiographical evidence. PLEASE NOTE: REFERENCE RANGES EDITED 17 Performed By: #### L500.2500, L501.4010 #### [facility] [address] [place], [place], [id number] CBC W/DIFF, AUTOMATED Collected: 06/03/2018 Status: F Source: [place] 4:05 [facility] REPOSITORY TYPE CODE TESTS RESULT OUT OF RANGE REFERENCE UNITS LAB L100.1000 4.4-11.0 K/mm3 High WBC 12.5 LAB L100.1200 4.2-5.4 M/mm3 Normal RBC 4.53 LAB L100.1300 12.0-15.0 g/dl Normal HGB 12.0 LAB L100.1400 37-47 % Normal HCT 37.7 LAB L100.1500 81-99 fL Normal MCV 83.2 LAB L100.1600 27.0-32.0 pg Low MCH 26.5 LAB L100.1700 32-36 g/gl Low MCHC 31.8 LAB L100.1810 11.6-14.6 % Normal RDW CV 13.1 LAB L100.1820 35.1-43.9 fl Normal RDW SD 39.6 LAB L100.1900 150-450 K/mm3 Normal PLT 259 LAB L100.2000 6.2-12.0 fl Normal MPV 9.5 LAB L100.2100 47-70 % High NEUT% 81.6 LAB L100.2200 19-41 % Low LY% 12.7 LAB L100.2300 0-10 % Normal MONO% 4.3 LAB L100.2400 0-5 % Normal EO% 1.0 LAB L100.2500 0-1 % Normal BASO% 0.1 LAB L100.2550 0.0-0.9 % Normal IM GRAN % 0.300 Result Comment: IG% - Immature Granulocytes (promyelocytes, myelocytes and metamyelocytes) > 1% indicates that a LEFT SHIFT is Present. LAB L100.2620 2.0-7.7 X10 3/uL High Absolute Neut 10.2 LAB L100.2720 0.83-4.51 X10 3/ul Normal Absolute Lymph 1.58 Performed By: #### L100.0100 #### [facility] [address] [place], [place], [id number] D-DIMER QUANTITATIVE Collected: 06/03/2018 Status: F Source: [place] (DVT/PE) 4:05 PM [facility] REPOSITORY TYPE CODE TESTS RESULT OUT OF RANGE REFERENCE UNITS LAB L300.8000 0.27-0.49 FEU/ug/m Normal D-DIMER 0.42 QUANT Result Comment: NORMAL D-Dimer level (<0.50) indicates no DVT or PE. Performed By: #### L300.8000 #### [facility] [address] [place], [place], [id number] LIVER PROFILE Collected: 06/03/2018 Status: F Source: [place] 4:05 PM [facility] REPOSITORY TYPE CODE TESTS RESULT OUT OF RANGE REFERENCE UNITS LAB L501.1500 6.4-8.2 g/dL Normal T PROT 7.1 LAB L501.1800 3.2-5.0 g/dL Normal ALB 3.2 LAB L501.1950 2.2-4.2 g/dL Normal GLOB 3.9 LAB L501.4100 15-37 U/L Normal AST 17 LAB L501.4305 45-117 U/L Normal ALK P 74 LAB L501.4405 13-56 U/L Normal ALT 32 LAB L501.4600 0.20-1.00 mg/dL Normal T BILI 0.20 LAB L501.4700 0.00-0.30 mg/dL Normal D BILI < 0.05 Performed By: #### L500.3400, L501.2450 #### [facility] [address] [place], [address] LIPASE Collected: 06/03/2018 Status: F Source: [place] 4:05 PM [facility] REPOSITORY TYPE CODE TESTS RESULT OUT OF RANGE REFERENCE UNITS LAB L501.2450 73-393 U/L Normal LIPASE 110 Performed By: #### L500.3400, L501.2450 #### [facility] [address] [place], [address] DIGESTION OPERATOR OFFICE VISIT Observed: 05/22/2018 Status: F Source: [place] REPORT 3:44 PM [facility] REPOSITORY [facility] [address] [place] [address] OFFICE VISIT Date of Service: 05/22/18 MR#: [id number] Acct: [id number] Name: ANKUR COYNE Rep #: [id number] : 1995 Provider: Lynette Ledbetter MD Age/Sex: 22/F Location: [facility] Status: Signed Intake Vital Signs05/22/18 Body Mass Index (BMI) 31.3 05/22/18 Height 5 ft 3 in 05/22/18 Weight: 178 lb 05/22/18 Body Mass Index (BMI) 31.5 05/22/18 Blood Pressure 120/80 Intake Visit Reasons: 17 weeks, Quad Screen Chief Complaint: est ob Slipcover Cutter Required: No Is patient in pain?: No Allergies tramadol Allergy (Mild, Verified 05/22/18 15:17) Unknown Medications ondansetron HCl 4 mg tablet 4 mg PO BID-TID PRN #60 tab 05/22/18 [Rx Confirmed 05/22/18] vitamin#30 30 mg iron-10 mg iron-folic acid 1 mg- omg3 capsule cap PO cap 05/22/18 [History Confirmed 05/22/18] Last Menstral Period: 01/14/18 Zika: Zika virus screening: Negative : No PFSH PFSH Family History Grandfather Diabetes Myocardial infarction CVA (cerebral vascular accident) Social History Smoking Status: Never smoker alcohol intake: never substance use type: does not use caffeine: Yes what type of physical activity do you participate in: walking seatbelt use: always do you feel safe at home: Yes additional social history: [employer] Patient is currently unemployed Pregancy History 1 Elective abortions Hx Para Spontaneous abortions HPI 17 weeks, Quad Screen: Details: ANKUR COYNE is a 22 year old who presents for routine OB visit. OB Visit OJ Calculator Estimated Delivery Date 10/21/18 Based on LMP (uncertain) 01/14/18 Current WG 18w 2d Number 1 Expected Delivery Route/Plan Specific Issue/Plans flu vaccine: declines tdap vaccine: [] rhogam: [] LARC form signed: [] labor support person: [] pain management: [] cut cord/dad catch: [] : [] PP control planned: [] special requests: [] Initial Weight: 177 lb Date Weight BP Urine PFHR FuHt Pres MCTX DilatioFetal SVisit NProvideComment rot ov n t ote r s EGA Ef Gluco faced se 04/30/1177 lb 100/64 155 nausea 8 (+0 oz) improve 15 d no vb w 1d crampi ng Visit Notes Visit Date: 05/22/18 no vb cramping Lynette Ledbetter MD on 05/22/18 Visit Date: 04/30/18 nausea improved no vb cramping Lynette Ledbetter MD on 04/30/18 Diagnostics Diagnostics Labs Blood Type O POSITIVE 03/24/18 Antibody Screen NEGATIVE 03/24/18 Hct 41.2 % (37-47) 03/24/18 Hgb 13.4 g/dl (12.0-15.0) 03/24/18 Rubella IgG Antibody 57.6 IU/mL 03/24/18 RPR NONREACTIVE (NONREACTIVE) 03/24/18 Hep Bs Antigen Negative (Negative) 03/24/18 Chlam trachomat DNA PCR Negative (Negative) 03/24/18 N.gonorrhoeae DNA (PCR) Negative (Negative) 03/24/18 Details: HIV: Urine Culture: Sequential Screen: NIPT Screen: Results [id number] Office Urine Glucose Negative Last Edit by Michaelle Allen on 05/22/18 15:32 Office Urine Protein Negative Last Edit by Michaelle Allen on 05/22/18 15:32 Assessment AND Plan Problems 1. Encounter for supervision of normal first in first trimester Z34.01 PRR OJ 10/21/18 Fiance:Roseline Bartholomew 2. 18 weeks gestation of Z3A.18 quad screen planned. carrier screening declined. anatomy scan ordered. Plan ACOG trimester education reviewed and updated. see problem list details for updated plan management information and see below for orders placed at this visit. GA appropriate handout given. Orders Orders: Medications New: Coding Level of Care Code OB Routine Diagnoses Encounter for supervision of normal first in first trimester Z34. Trimester: first trimester 18 weeks gestation of Z3A.18 Weeks of gestation: 18 weeks 05/22/18 1544 <Electronically signed by Lynette Ledbetter MD> Date Lynette Ledbetter MD [facility] Signature: Date (if applicable) CC: DIGESTION OPERATOR OFFICE VISIT Observed: 04/30/2018 Status: F Source: [place] REPORT 4:57 PM [facility] [address] [place] [address] OFFICE VISIT Date of Service: 04/30/18 MR#: [id number] Acct: [id number] Name: ANKUR COYNE Rep #: [id number] : 1995 Provider: Lynette Ledbetter MD Age/Sex: 22/F Location: [facility] [place] Status: Signed Intake Vital Signs04/30/18 Height 5 ft 3 in 04/30/18 Weight: 177 lb 04/30/18 Body Mass Index (BMI) 31.3 04/30/18 Blood Pressure 100/64 Intake Visit Reasons: 13 weeks Chief Complaint: est ob Slipcover Cutter Required: No Is patient in pain?: No Allergies tramadol Allergy (Mild, Verified 04/30/18 16:22) Unknown Medications ondansetron HCl 4 mg tablet 4 mg PO Q6H PRN #60 tab 04/14/18 [Rx Confirmed 04/30/18] Last Menstral Period: 01/14/18 Zika: Zika virus screening: Negative : No PFSH PFSH Family History Grandfather Diabetes Myocardial infarction CVA (cerebral vascular accident) Social History Smoking Status: Never smoker alcohol intake: never substance use type: does not use caffeine: Yes what type of physical activity do you participate in: walking seatbelt use: always do you feel safe at home: Yes additional social history: [employer] Patient is currently unemployed Pregancy History 0 Elective abortions Hx Para Spontaneous abortions HPI 13 weeks: Details: ANKUR COYNE is a 22 year old who presents for routine OB visit. OB Visit OJ Calculator Estimated Delivery Date 10/21/18 Based on LMP (uncertain) 01/14/18 Current WG 15w 1d Number 1 Expected Delivery Route/Plan Specific Issue/Plans flu vaccine: declines tdap vaccine: [] rhogam: [] LARC form signed: [] labor support person: [] pain management: [] cut cord/dad catch: [] : [] PP control planned: [] special requests: [] Initial Weight: 177 lb Date Weight BP Urine PrFHR FuHt Pres MoCTX DilationFetal StVisit NoProviderComments E ot v te GA G Effac lucose ed Visit Notes Visit Date: 04/30/18 nausea improved no vb cramping Lynette Ledbetter MD on 04/30/18 Diagnostics Diagnostics Labs Blood Type O POSITIVE 03/24/18 Antibody Screen NEGATIVE 03/24/18 Hct 41.2 % (37-47) 03/24/18 Hgb 13.4 g/dl (12.0-15.0) 03/24/18 Rubella IgG Antibody 57.6 IU/mL 03/24/18 RPR NONREACTIVE (NONREACTIVE) 03/24/18 Hep Bs Antigen Negative (Negative) 03/24/18 Chlam trachomat DNA PCR Negative (Negative) 03/24/18 N.gonorrhoeae DNA (PCR) Negative (Negative) 03/24/18 Details: HIV: Urine Culture: Sequential Screen: NIPT Screen: Assessment AND Plan Problems 1. 15 weeks gestation of Z3A.15 quad screen planned. carrier screening declined. anatomy scan ordered. 2. Encounter for supervision of normal first in first trimester Z34.01 PRR OJ 10/21/18 Fiance:Roseline Bartholomew Plan ACOG trimester education reviewed and updated. see problem list details for updated plan management information and see below for orders placed at this visit. GA appropriate handout given. Orders Orders: Coding Level of Care Code OB Routine Diagnoses 15 weeks gestation of Z3A.15 Weeks of gestation: 15 weeks Encounter for supervision of normal first in first trimester Z34.01 Trimester: first trimester 04/30/18 1017 <Electronically signed by Lynette Ledbetter MD> Date Lynette Ledbetter MD [facility] Signature: Date (if applicable) CC: DIGESTION OPERATOR OFFICE VISIT Observed: 03/28/2018 Status: F Source: [place] REPORT 3:55 AM [facility] [address] [place] [address] OFFICE VISIT Date of Service: 03/24/18 MR#: [id number] Acct: [id number] Name: ANKUR COYNE Rep #: [id number] : 1995 Provider: Lynette Ledbetter MD Age/Sex: 22/F Location: [facility] Status: Signed Intake Vital Signs03/24/18 Height 5 ft 3 in 03/24/18 Weight: 176 lb 6 oz 03/24/18 Body Mass Index (BMI) 31.2 03/24/18 Blood Pressure 100/60 Intake Visit Reasons: NOB 01/14/18 Chief Complaint: NEW OB Slipcover Cutter Required: No Is patient in pain?: Yes Allergies tramadol Allergy (Mild, Verified 03/24/18 11:19) Unknown Last Menstral Period: 01/14/18 Zika: Zika virus screening: Negative : No PFSH PFSH Family History Grandfather Diabetes Myocardial infarction CVA (cerebral vascular accident) Social History Smoking Status: Never smoker alcohol intake: never substance use type: does not use caffeine: Yes what type of physical activity do you participate in: walking seatbelt use: always do you feel safe at home: Yes additional social history: [employer] Patient is currently unemployed Pregancy History 0 Elective abortions Hx Para Spontaneous abortions HPI NOB 01/14/18: Details: ANKUR COYNE is a 22 year old who presents for New OB visit. OB Visit Comments: us done and oj consistent with LMP, positive FHT Menstrual History Last Menstral Period: 01/14/18 Reported LMP: approximate (month known) Normal amount/duration: Yes On hormonal BC at conception: No hCG+: 02/13/18 Antepartum Record Genetic Screening: Congenital Heart Defect: Partner (FOB sister hole in heart), Neural Tube Defect: Other, Hemoglobinopathy Or Carrier: Other, Cystic Fibrosis: Other, Chromosome Abnormality: Other, Jose Alfredo-Sachs: Other, Hemophilia: Other, Intellectual Disability/Autism: Other, Recurrent Loss/Stillbirth: Other, Other Structural Defect: Other, Other Genetic Disease: Other, Maternal Metabolic Disorder: Other Infection History: Live with someone with TB or Exposed to TB: No, Patient or Partner has history of Genital Herpes: No, Rash or Viral illness since last mentrual period: No, Prior GBS-Infected child: No, History of STD: No, HIV Infection: No, History of Hepatitis: No, Recent travel outside of [place]: No, Concern for Hep exposure: No, Varicella immune: Yes (chicken pox as child) Medical History Medical History: Positive: Drug/latex allergies/reactions (tramadol. Animal dander), Operations/hospitalizations (wisdom teeth, tonsils), Negative: Diabetes, Hypertension, Heart disease, Auto-immune disorder, Kidney disease/UTI, Neurologic/epilepsy, Psychiatric, Depression/ depression, Hepatitis/liver disease, Varicosities/phlebitis, Thyroid dysfunction, Trauma/domestic violence, History of blood transfusions, D (Rh) Sensitized, Pulmonary (e.g.,TB,Asthma), Seasonal allergies, Breast, Hand Spray Operator surgery, Anesthetic complications, History of abnormal pap, Uterine anomaly/lynn, Infertility, Anti-retroviral treatment, Relevant family history, Other ACOG First Trimester First Trimester: Desire for , Alcohol, Tobacco Cessation, Illicit/Recreational Drug/Substance Use, Intimate Partner Violence, Barriers to care, Unstable Housing, Communication Barriers, Environmental/Work Hazards, Anticipated Course of Care, Nurtrition and weight gain, Toxoplasmosis Precations, Use of Any medications, Sexual activity, Exercise, Dental Care, Sauna/Hot tub use, Seat Belt use, Childbirth classes/Hospital facilities, , Travel, Indications for [place] and Screening for Aneuploidy ROS Const Denies fever(s), Reports system reviewed and no additional complaints, except as docu, Reports fatigue Eyes Reports system reviewed and no additional complaints, except as docu ENT Reports system reviewed and no additional complaints, except as docu Card Denies chest pain, Denies shortness of breath Resp Reports system reviewed and no additional complaints, except as docu, Denies shortness of breath, Denies cough GI Reports nausea, Denies abdominal pain Reports system reviewed and no additional complaints, except as docu Musc Reports system reviewed and no additional complaints, except as docu Skin/Breast Reports system reviewed and no additional complaints, except as docu Neuro Yes system reviewed and no additional complaints, except as docu Psych Reports system reviewed and no additional complaints, except as docu Endo Reports fatigue, Reports system reviewed and no additional complaints, except as docu Exam Const General: cooperative Nutritional Appearance: average body habitus Orientation: alert HENMT Head: normal to inspection, atraumatic, normocephalic Ears: external ears normal, hearing grossly normal bilaterally Nose: nares normal, external nose normal Mouth: oral mucosae normal Teeth and gingiva: dentition normal Eyes General: appearance normal, both eyes and all related structures Neck Neck: no lymphadenopathy, supple, normal visual inspection Thyroid: thyroid normal Chest Chest palpation AND inspection: normal inspection of the chest Breast inspection: normal inspection of the breasts, normal inspection of the axillae Breast palpation: normal palpation of the breasts, normal palpation of the axillae Resp Effort AND Inspection: normal respiratory effort GI Inspection: normal to inspection Palpation: soft, no hepatosplenomegaly General: bladder normal to palpation External Female Exam: normal external appearance, normal appearance of the urethra Urethra: normal appearance of the urethra Speculum Exam - Vagina: normal appearance of the vagina, normal vaginal discharge Speculum Exam - Cervix: normal appearance of the cervix Bimanual Exam- Vagina AND Uterus: bladder normal to palpation, normal bimanual exam, uterus non-tender, other Bimanual Exam- Adnexa, other: adnexae non-tender Skin General: no rashes or lesions noted Neuro Motor: muscle tone normal throughout, no movement abnormalities noted Extrem General: normal to inspection, full ROM Assessment AND Plan Problems 1. 8 weeks gestation of Z3A.08 considering genetic screening. desires cf carrier screening. 2. Encounter for supervision of normal first in first trimester Z34. OJ 10/21/18 Grav 1/0 Fiance:Roseline Bartholomew Plan - Lynette Ledbetter MD Patient oriented to practice and discussed care expectations and screenings. ACOG book offered to patient. Discussed routine and specially indicated labs if needed- patient consents to testing. see problem list details for plan information. Optional screening including carrier screenings, neural tube defect screening, sequential screening, and NIPT screening offered to patient and patient chose: considering Plan - ARIANA Singh Orders Orders: Supplemental Info ACOG book given and patient encouraged to read about nutrition, exercise, weight gain, and food avoidance in . Coding Level of Care Code OB Routine Diagnoses 8 weeks gestation of Z3A.08 Weeks of gestation: 8 weeks Encounter for supervision of normal first in first trimester Z34. Trimester: first trimester 03/28/18 0355 <Electronically signed by Lynette Ledbetter MD> Date Lynette Ledbetter MD [employer] Signature: Date (if applicable) CC: CBC W/DIFF, AUTOMATED Collected: 03/24/2018 Status: F Source: [place] 2:11 PM [facility] REPOSITORY TYPE CODE TESTS RESULT OUT OF RANGE REFERENCE UNITS LAB L100.1000 4.4-11.0 K/mm3 High WBC 12.4 LAB L100.1200 4.2-5.4 M/mm3 Normal RBC 5.04 LAB L100.1300 12.0-15.0 g/dl Normal HGB 13.4 LAB L100.1400 37-47 % Normal HCT 41.2 LAB L100.1500 81-99 fL Normal MCV 81.7 LAB L100.1600 27.0-32.0 pg Low MCH 26.6 LAB L100.1700 32-36 g/gl Normal MCHC 32.5 LAB L100.1810 11.6-14.6 % Normal RDW CV 12.9 LAB L100.1820 35.1-43.9 fl Normal RDW SD 38.5 LAB L100.1900 150-450 K/mm3 Normal PLT 271 LAB L100.2000 6.2-12.0 fl Normal MPV 9.4 LAB L100.2100 47-70 % High NEUT% 82.7 LAB L100.2200 19-41 % Low LY% 13.0 LAB L100.2300 0-10 % Normal MONO% 3.6 LAB L100.2400 0-5 % Normal EO% 0.5 LAB L100.2500 0-1 % Normal BASO% 0.1 LAB L100.2550 0.0-0.9 % Normal IM GRAN % 0.100 Result Comment: IG% - Immature Granulocytes (promyelocytes, myelocytes and metamyelocytes) > 1% indicates that a LEFT SHIFT is Present. LAB L100.2620 2.0-7.7 X10 3/uL High Absolute Neut 10.3 LAB L100.2720 0.83-4.51 X10 3/ul Normal Absolute Lymph 1.61 Performed By: #### L100.0100 #### [facility] [address] [facility]. [facility] [id number] RUBELLA IGG Collected: 03/24/2018 Status: F Source: [place] 2:11 PM [facility] REPOSITORY TYPE CODE TESTS RESULT OUT OF RANGE REFERENCE UNITS LAB L509.4000 IU/mL Normal Rubella IgG 57.6 Result Comment: Antibody results Interpretation of Immune Status < 5 IU/ml Presumed Non-immune 5 - < 10 IU/ml Equivocal > or = 10 IU/ml Presumed Immune Performed By: #### L509.4000, L3890.6005 #### [facility]. [facility] [address] HIV - [facility] Collected: 03/24/2018 Status: F Source: [place] 2:11 PM [facility] REPOSITORY TYPE CODE TESTS RESULT OUT OF RANGE REFERENCE UNITS LAB L3890.6005 Nonreactive Normal HIV - [facility] Non-Reactive Performed By: #### L509.4000, L3890.6005 #### [facility] [address] [place] [address]. [place] [id number] TYPE AND SCREEN Collected: 03/24/2018 Status: F Source: [place] 2:11 PM [facility] REPOSITORY Order Comment: Reason for Type AND Screen/Red Cells: TYPE CODE TESTS RESULT OUT OF RANGE REFERENCE UNITS LAB B10.0800 O Normal BLOOD TYPE GEL POSITIVE LAB B100.4000 Normal Antibody NEGATIVE Screen Performed By: #### B101.7450 #### [facility]. [facility] [id number] RAPID PLASMIN REAGIN Collected: 03/24/2018 Status: F Source: [place] (RPR) 2:11 PM [facility] REPOSITORY TYPE CODE TESTS RESULT OUT OF REFERENCE UNITS RANGE LAB L700.5000 NONREACTIVE NONREACTIVE Normal RPR Performed By: #### L700.5000 #### [facility]. [place] [id number] HEPATITIS B SURFACE Collected: 03/24/2018 Status: F Source: [place] AG 2:11 PM [facility] REPOSITORY TYPE CODE TESTS RESULT OUT OF RANGE REFERENCE UNITS LAB L3100.0400 Negative Normal HB Negative SURF AG Result Comment: Performed at: [facility] [id number] Campus Dean: Darren Soliman PhD, Phone: [phone] Performed By: #### L3100.0390 #### [facility] (refer to report for specific site) refer to report for address and phone number PAP I-G W/RFX Collected: 03/24/2018 Status: F Source: [place] HRHPV-APTIMA 11:30 AM [facility] REPOSITORY Order Comment: CYTOLOGY INFORMATION: - CLINICAL INFORMATION: - DATE LMP/MENOPAUSE: 01/14/18 LMP - COLLECTION VIAL: Thin Prep Vial - CORE JAVA SOFTWARE ENGINEER SOURCE: CERVICAL - COLLECTION TECHNIQUE: CX BROOM ONLY Specimen Comment: [id number] Specimen Comment: Source.............Cervix Specimen Comment: LMP / Prev Treat...[id number] Specimen Comment: Other.............. Specimen Comment: No. of containers..01 ThinPrep Vial TYPE CODE TESTS RESULT OUT OF RANGE REFERENCE UNITS LAB L7400.0800 . Normal DIAGN Comment Result Comment: NEGATIVE FOR INTRAEPITHELIAL LESION AND MALIGNANCY. LAB L7400.0900 . Normal ADEQ Comment Result Comment: Satisfactory for evaluation. Endocervical and/or squamous metaplastic cells (endocervical component) are present. LAB L7400.1400 . Normal PERFORM Comment Result Comment: Sandra Shen, Welt Insole Channeler (ASCP) LAB L7400.2575 . Normal TEST METHOD Comment Result Comment: This liquid based ThinPrep(R) pap test was screened with the use of an image guided system. LAB L7400.2600 . Normal . COMM LAB L7400.2700 . Normal PAPSMR Comment Result Comment: The Pap smear is a screening test designed to aid in the detection of premalignant and malignant conditions of the uterine cervix. It is not a diagnostic procedure and should not be used as the sole means of detecting cervical cancer. Both false-positive and false-negative reports do occur. LAB L7400.2800 . Normal HPV RFLX Comment Result Comment: The HPV DNA reflex criteria were not met with this specimen result therefore, no HPV testing was performed. Performed at: [facility] [id number] Campus Dean: Sabrina Gil MD, Phone: [phone] Performed By: #### L7400.0353 #### [facility] (refer to report for specific site) refer to report for address and phone number CT/NG [facility] BY PCR Collected: 03/24/2018 Status: F Source: [place] 12:00 AM [facility] TYPE CODE TESTS RESULT OUT OF RANGE REFERENCE UNITS LAB L8200.2100 Negative Normal Chlam Negative Trac PCR LAB L8200.2200 Negative Normal NG by Negative PCR Performed By: #### L8200.2000 #### [facility] [address] [place], [address] Observed: 03/24/2018 Status: F Source: [place] CULTURE, URINE 12:00 AM [facility] REPOSITORY Urine Culture Culture exhibits no growth. Performed By: #### M100.0650 #### [facility] [address] [place], [address] CBC Collected: 03/05/2018 Status: F Source: [place] 4:43 PM [facility] REPOSITORY TYPE CODE TESTS RESULT OUT OF RANGE REFERENCE UNITS LAB CBC(LOINC) CBC Result Comment: CBC-COMPLETE BLOOD COUNT LAB WBC(LOINC) 4.5 - 10.8 x 10EE3/UL WBC High 14.0 LAB RBC(LOINC) 4.10 - x 10EE6/UL 5.30 RBC 5.05 LAB HEMOGLOBIN(LOINC 12.0 - g/dl ) 16.0 HEMOGLOBIN 13.8 LAB HEMATOCRIT(LOINC 34.0 - % ) 46.0 HEMATOCRIT 40.0 LAB MCV(LOINC) 80 - 99 fl MCV Low 79 LAB MCH(LOINC) 27 - 33 pg MCH 27 LAB MCHC(LOINC) 32 - 36 X10 3 MCHC 35 LAB RDW/CV(LOINC) 12.0 - % 15.6 RDW/CV 13.3 LAB PLATELET(LOINC) 150 - 450 x10EE3/UL PLATELET 266 LAB MPV(LOINC) 6.6 - 10.5 fl MPV 7.6 Result Comment: AUTOMATED DIFFERENTIAL LAB NEUT %(LOINC) 46.0 - 76.0 % NEUT % High 79.2 LAB LYMPH %(LOINC) 20.0 - 45.0 % Low LYMPH % 15.9 LAB MONOS %(LOINC) 0.0 - 10.0 % MONOS % 4.2 LAB EO %(LOINC) 0.0 - 7.0 % EO % 0.2 LAB BASO %(LOINC) 0.0 - 2.0 % BASO % 0.5 LAB Lymph #(LOINC) 0.80 - 2.80 x10EE3/U L Lymph # 2.20 LAB Neut #(LOINC) 1.50 - 7.10 x10EE3/U L Neut # High 11.10 LAB Potter #(LOINC) 0.20 - 1.00 x10EE3/U L Potter # 0.60 LAB EO #(LOINC) 0.00 - 0.50 x10EE3/U L EO # 0.00 LAB Baso #(LOINC) 0.00 - 0.10 x10EE3/U L Baso # 0.10 LAB MANUAL DIFF(LOINC) MANUAL DIFF N/A LAB MORPHOLOGY(LOINC ) MORPHOLOGY N/A Result Comment: {CD] Performed By: #### [id number] #### [facility],[address] [place] [address] URINALYSIS Collected: 03/05/2018 Status: F Source: [facility] 4:43 PM [facility] REPOSITORY TYPE CODE TESTS RESULT OUT OF REFERENCE UNITS RANGE LAB URINALYSIS (LOINC) URINALYSIS Result Comment: URINALYSIS LAB Specimen Type(LOINC) Specimen Type R LAB Color(LOINC) NORMAL: YELLOW Color p.yel LAB Clarity(LOINC) NORMAL: CLEAR Clarity clear LAB ph(LOINC) NORMAL: 5.0-8.0 ph 5 LAB Protein(LOINC) NORMAL: NEGATIVE Protein NEG LAB Glucose(LOINC) NORMAL: NORMAL Glucose NORM LAB Ketone(LOINC) NORMAL: NEGATIVE Ketone Abnormal 5 LAB Bilirubin(LOINC) NORMAL: NEGATIVE Bilirubin NEG LAB Blood(LOINC) NORMAL: NEGATIVE Blood Abnormal 10 LAB Urobilinog(LOINC) NORMAL: NORMAL Urobilinog NORM LAB Sp [place](LOINC) NORMAL: 1.010-1.030 Sp [place] 1.020 LAB Nitrite(LOINC) NORMAL: NEGATIVE Nitrite NEG LAB Leukocytes(LOINC) NORMAL: NEGATIVE Leukocytes NEG LAB Microscopic(LOINC ) Microscopic SEE BELOW Result Comment: MICROSCOPIC LAB Wbc(LOINC) 0-5/hpf Wbc 1-5 LAB Rbc(LOINC) 0-3/hpf Rbc 0-5 LAB Casts(LOINC) Casts NONE LAB Crystals(LOINC) Crystals NONE LAB Amorphous(LOINC) NONE Amorphous LAB Bacteria(LOINC) Bacteria 3+ LAB Epi Cells(LOINC) Epi Cells MODERATE LAB Mucous(LOINC) Mucous NONE LAB Yeast(LOINC) Yeast NONE Performed By: #### [id number] #### [facility],[address] [place] [address] CMP WITH EGFR Collected: 03/05/2018 Status: F Source: [facility] 4:43 PM [facility] REPOSITORY TYPE CODE TESTS RESULT OUT OF RANGE REFERENCE UNITS LAB CMP with eGFR(LOINC) CMP with eGFR Result Comment: COMPREHENSIVE METABOLIC PANEL LAB SODIUM(LOINC) 136 - 145 mmol/l SODIUM 136 LAB POTASSIUM(LOINC) 3.5 - 5.1 mmol/L Low POTASSIUM 3.4 LAB CHLORIDE(LOINC) 98 - 107 mmol/L CHLORIDE 101 LAB CO2(LOINC) 21.0 - mmol/L 31.0 CO2 24.2 LAB GLUCOSE(LOINC) 74 - 106 mg/dl GLUCOSE 86 LAB BUN(LOINC) 6 - 20 mg/dl BUN 10 LAB CREATININE(LOINC) 0.6 - 1.2 mg/dl CREATININE 0.8 LAB AST/SGOT(LOINC) 13 - 39 U/L AST/SGOT Low 12 LAB ALK PHOS(LOINC) 38 - 126 U/L ALK PHOS 50 LAB CALCIUM(LOINC) 8.6 - mg/dl 10.2 CALCIUM 9.4 LAB TOTAL PROTEIN(LOINC) 6.4 - 8.3 g/dl TOTAL PROTEIN 7.6 LAB ALBUMIN(LOINC) 3.4 - 4.8 g/dL ALBUMIN 4.5 LAB GLOBULIN(LOINC) 1.5 - 3.8 G/DL GLOBULIN 3.1 LAB A/G RATIO(LOINC) 0.9 - 1.6 A/G RATIO 1.5 LAB TOTAL BILI(LOINC) 0.0 - 1.5 mg/dl TOTAL BILI 0.6 LAB B/C RATIO(LOINC) 0 - 30 ratio B/C RATIO 13 LAB ALT/SGPT(LOINC) 8 - 35 U/L ALT/SGPT 13 LAB ANION GAP(LOINC) 10 - 20 mmol/L ANION GAP 14 LAB AGE(LOINC) years AGE 22 LAB eGFR(LOINC) 60 - 999 ML/MINUTE eGFR >60 LAB eGFR(AA)(LOINC) 60 - 999 ML/MINUTE eGFR(AA) >60 Result Comment: ACCORDING TO THE NATIONAL KIDNEY DISEASE EDUCATION PROGRAM(NKDE), A NORMAL eGFR IS A VALUE GREATER THAN OR EQUAL TO 60 ML/MIN/1.73 SQ METERS. CHRONIC KIDNEY DISEASE: <60mL/MIN/1.73 SQ METERS KIDNEY FAILURE: <15mL/MIN/1.73 SQ METERS THIS TEST SHOULD ONLY BE USED FOR PATIENTS 18 YEARS OF AGE AND OLDER. Performed By: #### [id number] #### [place] [address] PREG SERUM QUANT Collected: 03/05/2018 Status: F Source: [facility] 4:43 PM [facility] REPOSITORY TYPE CODE TESTS RESULT OUT OF REFERENCE UNITS RANGE LAB HCG mIU/mL QUANTITATI VE(LOINC) HCG QUANTITATIVE [id number] Result Comment: Reference Range: Male: <5 Female: Non: <5 1 - 7 days : 5 - 50 1 - 2 weeks: 50 - 500 2 - 3 weeks: 100 - 5000 3 - 4 weeks: 500 - 10,000 4 - 5 weeks: 1000 - 50,000 5 - 6 weeks: 10,000 - 100,000 6 - 8 weeks: 15,000 - 200,000 2 - 3 months: 10,000 - 100,000 2ND TRIMESTER 3000-50,000 3RD TRIMESTER 1000-50,000 Performed By: #### [id number] #### [place] [address] Observed: 03/05/2018 Status: F Source: [facility] CULTURE URINE 4:43 PM [facility] REPOSITORY CULTURE URINE _URINE CULTURE_ M I C R O B I O L O G Y R E P O R T FINAL Antimicrobial Susceptibility and Organism Identification Report Specimen Number : [id number] Requested : 03/05/18 Specimen Source : CLEAN CATCH URINE Collected : 03/05/18 16:43 [place] of Isolation : Emergency Room Received : 03/05/18 16:43 Requesting Physician : JULIO PERDOMO Patient/Specimen Tests and Comments Specimen Comments FINAL REPORT: NO GROWTH AT 18 - 24 HOURS NO GROWTH AT 48 HOURS Tech : Source : CLEAN CATCH URINE ID # : [id number] FINAL Report Date : / / : Collected : 03/05/18 16:43 03/08/18.14.JLN. 03/07/18.28.JLN. 03/08/18.713.JLN.COMPLETE Performed By: #### [id number] #### [facility],[address] [place] [address] EMERGENCY REPORT Observed: 03/05/2018 Status: F Source: [facility] 4:34 PM [facility] EMERGENCY ROOM REPORT NAME ACCOUNT SEX AGE ADMIT DISCHARGE PT MED. RECORD# NUMBER DATE DATE TYPE DORETHA [id number] F 22 03/05/18 03/05/18 3 ANKUR Cardona [id number] ROOM: ER DATE OF : 1995 DICTATING PHYSICIAN: Arik Oconnor CHIEF COMPLAINT: Vomiting. HISTORY OF PRESENT ILLNESS: The patient states that she has been nauseated with vomiting for several days. She thinks that she is about 6 weeks with her last period being about mid December. She is not really complaining of abdominal pain, but has had nausea and vomiting for several days. It is not constant. She is not having any urinary symptoms. No diarrhea. No fever. PAST MEDICAL HISTORY: Negative for chronic medical problems. PAST SURGICAL HISTORY: She has had a previous tonsillectomy. MEDICATIONS: She takes no medications. ALLERGIES: She is allergic to Tramadol. SOCIAL HISTORY: She lives at home. She does not smoke or drink alcohol. This is her first . REVIEW OF SYSTEMS: No underlying heart or lung disease, bowel or bladder symptoms. No recent injury or trauma. PHYSICAL EXAMINATION: This is a 22-year-old female alert, appropriate, does not appear toxic. Her skin is pink, warm, and dry. HEENT: Normal. Neck is supple without adenopathy. Lungs are clear without crackles or wheezes. Cardiac exam is regular rhythm without any ectopy, murmurs, gallops, or rubs. Abdomen is soft. She has minimal diffuse tenderness, but no focal guarding or rebound. No flank tenderness. She moves all extremities appropriately without any focal weaknesses. Good peripheral pulses. Good capillary refill. Vital signs: Temperature 98.6, pulse 106, respirations 16, blood pressure 132/87. DIAGNOSTIC DATA: CBC returned showing a white count of 14,000 with 80% neutrophils. Normal H&H. Quantitative hCG was 89,000 consistent with dates. CMP was within normal limits. Urinalysis was unremarkable. EMERGENCY DEPARTMENT COURSE AND TREATMENT: IV of normal saline was Page 1 of 2 ANKUR COYNE Emergency Room Report placed. She was given a liter of IV fluids, 4 mg of Zofran. She did feel moderately improved with that. She did feel significantly improved with less nausea and no appreciable abdominal pain. DIAGNOSIS: Vomiting from . PLAN/DISPOSITION: I gave her discharge instructions to try [id number] medication for this. She is to return if her symptoms worsen; otherwise, follow up with her [employer]ESTION [employer]PERATOR doctor this coming week. Dictated By: Arik Oconnor MD 03/05/18 18:27 JOB #: [id number] Transcribed By: am 03/05/18 22:03 Electronically signed by: KERA Oconnor M.D. 03/11/18 07:38 Page 2 of 2 ANKUR COYNE Emergency Room Report EMERGENCY REPORT Observed: 03/05/2018 Status: F Source: [facility] 4:34 PM [facility] EMERGENCY ROOM REPORT NAME ACCOUNT SEX AGE ADMIT DISCHARGE PT MED. RECORD# NUMBER DATE DATE TYPE DORETHA [id number] F 22 03/05/18 03/05/18 3 ANKUR Cardona [id number] ROOM: ER DATE OF : 1995 DICTATING PHYSICIAN: Arik Oconnor CHIEF COMPLAINT: Nausea and vomiting. HISTORY OF PRESENT ILLNESS: The patient states that she thinks she is 6 weeks . She has had a number of days where she has had nausea and vomiting, complains of some minimal abdominal discomfort. She has not had fever. No urinary symptoms. At times she is able to eat and other times not, but the vomiting has gradually gotten worse. This is her first . She thinks she is 6 weeks, but gives her last period as starting January 14, which would make her 7 weeks by dates. PAST MEDICAL HISTORY: This is her first . She has no other medical problems. MEDICATIONS: She takes no medications. ALLERGIES: She is allergic to Tramadol. SOCIAL HISTORY: She lives at home with significant other. She does not smoke or drink alcohol. REVIEW OF SYSTEMS: No underlying heart or lung disease, bowel or bladder symptoms. No bleeding disorders. PHYSICAL EXAMINATION: This is a 22-year-old female alert, appropriate, does not appear toxic or in acute distress. Skin is warm and dry. HEENT: Unremarkable. Neck is supple without adenopathy. Lungs are clear without crackles or wheezes. Cardiac exam is regular rhythm without any ectopy or murmurs. Abdomen is soft, minimal diffuse tenderness. No guarding or rebound. No focal tenderness. She moves all extremities appropriately without any focal weaknesses. Good peripheral pulses. Good capillary refill. Neurologic examination is normal. She ambulates well. Vital signs: Temperature 98.6, pulse 106, respirations 16, blood pressure 132/87. DIAGNOSTIC DATA: A number of laboratory studies were obtained. These returned showing a CBC with a white count of 14,000, minimal left shift with 79% neutrophils, normal H&H, normal platelet count. Her quantitative hCG was 89,000 consistent with her dates. CMP was unremarkable. Urinalysis was generally unremarkable. I did get a urine culture ordered. Page 1 of 2 ANKUR COYNE Emergency Room Report EMERGENCY DEPARTMENT COURSE AND TREATMENT: Her O2 saturation was 100%. IV of normal saline was placed. She was given a liter of IV fluids, 4 mg of Zofran and felt significantly improved with that. She did feel improved. DIAGNOSIS: First trimester with vomiting. PLAN/DISPOSITION: She will be discharged with prescriptions for [id number] medications for vomiting. She is to follow up with her [employer]ESTION OPERATOR doctor next week. If vomiting continues return and if she gets worse pain, vomiting, or other symptoms develop. Dictated By: Arik Oconnor MD 03/05/18 18:28 JOB #: [id number] Transcribed By: am 03/05/18 22:16 Electronically signed by: KERA Oconnor M.D. 03/11/18 07:38 Page 2 of 2 ANKUR COYNE Emergency Room Report EMERGENCY DEPARTMENT Observed: 08/15/2017 Status: F [facility] [place] [address] HEALTH INFORMATION MANAGEMENT EMERGENCY DEPARTMENT : [id number] Signed Patient: ANKUR COYNE Acct:[id number] MRUN: [id number] : 1995 Sex: F Loc: ED ADM Date: 08/15/17 Room/Bed: DISC Date: History of Present Illness - General Chief Complaint: Pain Stated Complaint: STOMACH PAIN Symptom onset: LAST NIGHT HPI: PT STATE SHE HAS PAIN IN LOWER ABDOMEN, BOTH SIDES. STATES ONLY HX OF OVAIRAN CYST AND FAMILY HX OF THEM RUPTURING. STATES SHE HAS A PAIN AT THE END OF HER URINE STREAM. NO NAUSEA OR VOMITING BUT SHE STATES PAIN WAS MILD UNTIL THEY ATE LONG [place] AND THE PAIN BECAME UNBEARABLE AT THAT TIME. Time Seen by Provider: 08/15/17 20:52 Nurses Notes Reviewed and Agreed With?: Yes Source: Patient Mode of Transport: Ambulatory - History of Present Illness Initial Comments: 21-year-old female complaining of moderate lower abdominal pain that she's had since yesterday. She states it was better with Motrin during the day while she was at work, but then it increased again when she ate this evening. She feels like something is wrong with her intestines or her ovaries. She feels like she is being torn apart. She denies any nausea, vomiting, diarrhea. Her pain she rates about an 8+ out of 10. She is obese, but she denies . Not sure what's going on. Denies any vaginal discharge or bleeding. Denies dysuria, frequency MD Complaint: other (lower abd pain) Onset/Timin -: days(s) Place: home Possible Precipitating Event: none Associated Symptoms: denies other symptoms. denies: fever/chills, loss of appetite, shortness of breath Treatments Prior to Arrival: none - Related Data Home Medications Medication Instructions Recorded Confirmed NK [NK] 08/15/17 08/15/17 Allergies Allergy/AdvReac Type Severity Reaction Status Date / Time tramadol HCl [From Ultram] Allergy Skin Rash Verified 04/16/15 12:03 - Hives Home medications and allergies reviewed: Yes Review of System - Constitutional Constitutional: Present: see HPI, Well developed, Well nourished, well hydrated, Non-toxic, Obese, other (lower abd pain) - Nose,Throat,Mouth Nose (ROS): Absent: pain Throat: Absent: pain, swelling, discharge Mouth: Present: no symptoms reported. Absent: pain, swelling - Respiratory Respiratory: Absent: cough, short of breath, wheezing - CV Cardiology: Absent: chest pain, edema - GI Gastrointestinal/Abdominal: Present: see HPI, abdominal pain, other (lower) - Genitourinary Symptoms: Present: no symptoms reported. Absent: see HPI, burning, dysuria, frequency , flank pain, hematuria, pain, urgency, vaginal bleeding - Neuro Neurological: Absent: headache, weakness - Muskuloskeletal Musculoskeletal: Absent: back pain, joint pain, joint swelling - Integumentary Skin: Absent: lesions, rash - Allergic/Immunologic Immunological/Allergic: Present: no symptoms reported - Hematologic Hematologic/Lymphatic: Absent: easy bleeding, easy bruising, swollen glands - Endocrine Endocrine: Present: no symptoms reported - Psychiatric Psychiatric: Present: Normal Affect, Normal Mood, Anxious. Absent: Depressed - All Others/Exceptions All Other Systems: Reviewed and Negative Except Where Noted in Documentation ED PMH/Social HX/Family HX - Respiratory Hx Respiratory Disorders: No - Cardiovascular Hx Cardiac Disorders: No - Neurological Hx Neurological Disorder: No - Endocrine Hx Endocrine Disorders: No - Gastrointestinal Hx Gastrointestinal Disorders: No - Genitourinary Hx Genitourinary Disorders: No - Musculoskeletal Hx Musculoskeletal Disorders: No - Reproductive ?: No Hx Reproductive Disorders: No Other Reproductive PMH: EVERY 3 MOS R/T BIRTHCONTROL - Psychological Hx Psychosocial Problems: No - HEENT Hx Ear, Nose Throat Disorders: Yes Past Surgical Hx-ENT: Adenoidectomy, Tonsillectomy - Cancer Hx Cancer: No - Immunizations Hx Tetanus, Diphtheria Vaccination: Yes Hx Influenza Vaccination: No Hx Pneumococcal Vaccination: No - Social History Able to Read: Yes Able to Write: Yes Smoking Status: Never Smoked Hx Chewing Tobacco Use: No Alcohol Use: Never Any recreational drug use reported?: No Hx Substance Use Treatment: No Feels Threatened In Home Environment: No Feels Threatened In a Relationship: No Hx Physical Abuse: No Hx Emotional Abuse: No Hx Suspected Abuse: No - Family PMH Father Living Status: Still Living Mother Living Status: Still Living General Exam - General Limitations: Complains of: no limitations Constitutional: Present: see HPI, Well developed, Well nourished, well hydrated, Non-toxic, other ( lower abd pain) - Head Head exam: Present: atraumatic, normocephalic, normal inspection - Eye Eye exam: Present: normal apperance, normal accomodation, EOMI Pupils: Present: PERRL - ENT ENT exam: Present: normal orophraynx, mucous membranes moist, TMs clear w/ good light reflex, normal external ear exam, No Nasal Discharge, Posterior Pharynx Non-erethemetous - Expanded ENT Exam Ear exam: Present: normal external inspection - Neck Neck exam: Present: full ROM, Supple. Absent: tenderness, meningismus, Posterior Lymphadenopathy, Anterior Lymphadenopathy - Respiratory Respiratory exam: Present: lungs clear equal bilaterally. Absent: respiratory distress, wheezes, rales, rhonchi, accessory muscle use - Cardiovascular Cardiovascular Exam: Present: regular rate, normal rhythm, normal heart sounds. Absent: murmur, rubs, gallop, clicks - GI/Abdominal GI/Abdominal exam: Present: soft, diminished bowel sounds, tenderness, other (lower quads). Absent : guarding, rebound, rigid, gravid state - Expanded GI/Abdominal Exam GI/Abdominal exam: Absent: psoas sign, obturator sign, [place] sign, Rov[place] sign, tenderness at [place] - Back Exam Back exam: Present: normal inspection, full ROM. Absent: tenderness - Neurological Exam Neurological exam: Present: alert, oriented X3, CN II-XII intact - Expanded Neurological Exam Patient oriented to: Present: person, place, time Speech: Present: fluid speech - Psychiatric Psychiatric exam: Present: normal affect, normal mood, anxious - Skin Skin Color: Present: Normal, [place] Skin exam: Present: warm, dry - Vital Signs Vital Signs 08/15/17 08/15/17 20:39 21:55 Temperature 98.8 F Pulse Rate [ 119 H 92 Pulse Ox] Respiratory 18 16 Rate Blood Pressure 130/99 H 140/80 [Left Arm Sitting] O2 Sat by Pulse 99 100 Oximetry(%) Course - Reevaluation(s) Reevaluation #1: 08/15/17 21:06 IV line established. Patient given 1 L saline IV. Patient given morphine 4 mg IV. Zofran 4 mg IV. Lab work and CT scan abdomen and pelvis pending. Reevaluation #2: 08/15/17 22:41 pain improved. In fact it's gone and her nausea is gone. Reviewed CT scan and laboratory data with patient. Patient still has some vague discomfort in her pelvis and will obtain a ultrasound of her pelvis tomorrow morning Seizure MDM - Lab Data Result diagrams: 08/15/17 21:33 08/15/17 21:33 Lab Results 08/15/17 08/15/17 08/15/17 Range/Units 21:15 21:15 21:33 WBC (3.6-10.8) K/uL RBC (3.83-5.19) M/uL Hgb (11.1-13.7) g/dL Hct (33.4-46.0) % MCV (81.0-99.0) fL MCH (27.0-31.0) pg MCHC (33.0-37.0) g/dL RDW (11.5-14.5) % Plt Count (148-402) K/uL MPV (7.4-10.4) fL Neut % (43.0-65.0) % Lymph % (17.0-45.5) % Potter % (5.5-11.7) % Eos % (0.9-2.9) % Baso % (0.2-1.0) % Absolute Neuts (auto) (2.2-4.8) K/uL Absolute Lymphs (auto) (1.3-2.9) K/uL Absolute Monos (auto) (0.3-0.8) K/uL Absolute Eos (auto) (0.0-0.2) K/uL Absolute Basos (auto) (0.0-0.1) K/uL Nucleated RBC % % Nucleated RBCs # K/uL Diff Slide Review Hypochromia PT (9.37-11.34) sec INR (2.0-3.5) ratio PTT (25.2-35.7) sec Sodium 140 (132-145) mmol/L Potassium 3.3 (3.3-5.1) mmol/L Chloride 103 (94-110) mmol/L Total Carbon Dioxide 28 (21-34) mmol/L Anion Gap 12.3 (8.0-16.0) mmol/L BUN 15.5 (3.2-26.9) mg/dL Creatinine 0.75 (0.51-0.95) mg/dL Est GFR (MDRD) Af Amer > 60 (>60) Est GFR (MDRD) Non-Af > 60 (>60) BUN/Creatinine Ratio 21 H (6-20) Glucose 110 H (65-100) mg/dL Calcium 9.1 (8.2-10.0) mg/dL Total Bilirubin 0.45 (0.00-0.99) mg/dL AST 9 (3-39) U/L ALT 20 (13-66) U/L Alkaline Phosphatase 58 (54-112) U/L Creatine Kinase 68 (26-192) U/L Troponin I (0.00-0.07) ng/mL Troponin I, Quant < 0.017 (0.000-0.056) ng/mL Total Protein 7.4 (6.1-8.2) g/dL Albumin 3.9 (3.4-5.0) g/dL Globulin 3.5 (1.5-4.5) g/dL Albumin/Globulin Ratio 1.1 (1.1-2.5) Amylase 58 (25-115) U/L Lipase 87 (65-230) U/L Urine Color P. yellow (Yellow) Urine Appearance Clear (Clear) Urine pH 6 Ur Specific [place] 1.025 (1.015-1.025) Urine Protein Negative (Negative) Urine Ketones Negative (Negative) Urine Blood Negative (Negative) Urine Nitrite Negative (Negative) Urine Bilirubin Negative (Negative) Urine Urobilinogen Normal (Normal-1.0) mg/dL Ur Leukocyte Esterase Negative (Negative) Urine Glucose Normal (Negative) Urine Test Negative (Negative) 08/15/17 08/15/17 08/15/17 Range/Units 21:33 21:33 21:33 WBC 10.3 (3.6-10.8) K/uL RBC 4.54 (3.83-5.19) M/uL Hgb 11.9 (11.1-13.7) g/dL Hct 35.7 (33.4-46.0) % MCV 78.6 L (81.0-99.0) fL MCH 26.3 L (27.0-31.0) pg MCHC 33.5 (33.0-37.0) g/dL RDW 12.8 (11.5-14.5) % Plt Count 254 (148-402) K/uL MPV 7.7 (7.4-10.4) fL Neut % 66.7 H (43.0-65.0) % Lymph % 25.4 (17.0-45.5) % Potter % 6.1 (5.5-11.7) % Eos % 1.7 (0.9-2.9) % Baso % 0.1 L (0.2-1.0) % Absolute Neuts (auto) 6.9 H (2.2-4.8) K/uL Absolute Lymphs (auto) 2.6 (1.3-2.9) K/uL Absolute Monos (auto) 0.6 (0.3-0.8) K/uL Absolute Eos (auto) 0.2 (0.0-0.2) K/uL Absolute Basos (auto) 0 (0.0-0.1) K/uL Nucleated RBC % 0 % Nucleated RBCs # 0 K/uL Diff Slide Review see below Hypochromia Present A PT 12.40 H (9.37-11.34) sec INR 1.1 L (2.0-3.5) ratio PTT 29.2 (25.2-35.7) sec Sodium (132-145) mmol/L Potassium (3.3-5.1) mmol/L Chloride (94-110) mmol/L Total Carbon Dioxide (21-34) mmol/L Anion Gap (8.0-16.0) mmol/L BUN (3.2-26.9) mg/dL Creatinine (0.51-0.95) mg/dL Est GFR (MDRD) Af Amer (>60) Est GFR (MDRD) Non-Af (>60) BUN/Creatinine Ratio (6-20) Glucose (65-100) mg/dL Calcium (8.2-10.0) mg/dL Total Bilirubin (0.00-0.99) mg/dL AST (3-39) U/L ALT (13-66) U/L Alkaline Phosphatase (54-112) U/L Creatine Kinase (26-192) U/L Troponin I (0.00-0.07) ng/mL Troponin I, Quant (0.000-0.056) ng/mL Total Protein (6.1-8.2) g/dL Albumin (3.4-5.0) g/dL Globulin (1.5-4.5) g/dL Albumin/Globulin Ratio (1.1-2.5) Amylase (25-115) U/L Lipase (65-230) U/L Urine Color (Yellow) Urine Appearance (Clear) Urine pH Ur Specific [place] (1.015-1.025) Urine Protein (Negative) Urine Ketones (Negative) Urine Blood (Negative) Urine Nitrite (Negative) Urine Bilirubin (Negative) Urine Urobilinogen (Normal-1.0) mg/dL Ur Leukocyte Esterase (Negative) Urine Glucose (Negative) Urine Test (Negative) Orders: Medications Discontinued Medications Sodium Chloride (Sodium Chloride 0.9 % 1000 Ml) 1,000 mls @ 999 mls/hr IV .Q1H1M STA Stop: 08/15/17 21:56 Last Infusion: 08/15/17 22:32 Dose: 0 mls/hr Ketorolac Tromethamine (Toradol 30 Mg/Ml Injection) 30 mg IVP ONE ONE Stop: 08/15/17 21:53 Last Admin: 08/15/17 21:53 Dose: 30 mg Morphine Sulfate (Morphine Sulfate) 4 mg IVP ONE ONE Stop: 08/15/17 20:57 Last Admin: 08/15/17 21:54 Dose: Not Given Non-Admin Reason: Patient Refused Ondansetron HCl (Zofran 4 Mg/2 Ml Injection) 4 mg IVP STAT STA Stop: 08/15/17 20:57 Last Admin: 08/15/17 21:27 Dose: 4 mg Labs 08/15/17 20:56 CT ABD/PELVIS W/O [CT] Stat Morphine Sulfate 4 mg IVP ONE ONE Normal Saline 0.9% 1000 ml [Sodium Chloride 0.9 % 1000 ml] 1,000 ml IV 999 mls/hr Ondansetron HCl/Pf [Zofran 4 mg/2 ml Injection] 4 mg IVP STAT STA 08/15/17 21:15 (Urine) [IMM] Stat UA and reflex culture [URN] Stat 08/15/17 21:33 Amylase [CHM] Stat CBC w/Auto Differential [HEM] Stat Cardiac Enzymes [CHM] Stat Comprehensive Metabolic Panel [CHM] Stat Lipase [CHM] Stat PT [COA] Stat PTT [COA] Stat Slide Scan [HEM] Stat 08/15/17 21:52 Ketorolac Tromethamine [Toradol 30 mg/ml Injection] 30 mg IVP ONE ONE - Radiology Data Radiology Report: Radiology report reviewed,negative per Radiologist, Radiology report reviewed,see report for findings Radiology Impressions Abdomen/Pelvis CT 08/15/17 20:56 IMPRESSION: Negative noncontrast CT examination of abdomen and pelvis. - Medical Decision Making 21-year-old female with lower abdominal pain that started last night, resolved with Motrin but then came back after she ate. She had basically normal labs including urinalysis, negative test and CT scan abdomen and pelvis was essentially normal. I suggested she obtain a transvaginal pelvic ultrasound tomorrow morning to rule out any ovarian issues. She has no vaginal discharge or bleeding. She is not and her urinalysis was negative. Diagnosis lower abdominal pain of uncertain etiology. Plan ultrasound in the morning meds as directed - Differential Diagnosis Other Differential Diagnosis: lower abd pain of uncertain etiology ED Discharge Summary - Discharge Data Clinical Impression: Lower abdominal pain of unknown etiology Condition: Good Disposition: 01 HOME, SELF-CARE Referrals: MIGUEL KEANE DO [Primary Care Provider] - Additional Instructions: Rest. Fluids. Call PCP for follow up. US in AM of lower abd. Med as directed. Home Medications: Ambulatory Orders Medication Instructions Recorded NK [NK] 08/15/17 Home medications and allergies reviewed: Yes Time Seen by Provider: 08/15/17 20:52 - Consultation I saw and examined the patient: Yes Nurses Notes Reviewed and Agreed With?: Yes - Dictation Amendments/Documentation: Comeks Document Only Electronically Generated By: SHARI DE LEON DO Generated Date/Time: 08/15/172057 Electronically Signed By: SHARI DE LEON DO Signed Date/Time 08/15/174 Co Signed Electronically By: Co Signed Date/Time: CC: MIGUEL KEANE DO CBC W/AUTO DIFFERENTIAL Collected: 08/15/2017 Status: F Source: [place] 9:33 PM [facility] REPOSITORY TYPE CODE TESTS RESULT OUT OF RANGE REFERENCE UNITS LAB WBCIR([place] 3.6-10.8 K/uL NC) WBC 10.3 LAB RBC(LOINC 3.83-5.19 M/uL ) RBC 4.54 LAB HGB(LOINC 11.1-13.7 g/dL ) HGB 11.9 LAB HCT(LOINC 33.4-46.0 % ) HCT 35.7 LAB MCV(LOINC 81.0-99.0 fL ) Low MCV 78.6 LAB MCH(LOINC 27.0-31.0 pg ) Low MCH 26.3 LAB MCHC(LOIN 33.0-37.0 g/dL C) MCHC 33.5 LAB RDW(LOINC 11.5-14.5 % ) RDW 12.8 LAB PLTI(LOIN 148-402 K/uL C) Platelet Count 254 LAB MPV(LOINC 7.4-10.4 fL ) MPV 7.7 LAB SEGR(LOIN 43.0-65.0 % C) High Neutrophils % 66.7 LAB LYMPR([place] 17.0-45.5 % NC) Lymphocytes % 25.4 LAB MONOR([place] 5.5-11.7 % NC) Monocytes % 6.1 LAB EOSR(LOIN 0.9-2.9 % C) Eosinophils % 1.7 LAB BASOR([place] 0.2-1.0 % NC) Low Basophils % 0.1 LAB NRBC%([place]AD[place] % NC) NRBC % 0.0 LAB ASEGR([place]AD[place] 2.2-4.8 K/uL NC) High Neutrophils Abs. # 6.9 LAB ALYMR([place] 1.3-2.9 K/uL NC) Lymphocytes Abs. # 2.6 LAB AMONR(AMADO 0.3-0.8 K/uL NC) Monocytes Abs. # 0.6 LAB AEOSR([place] 0.0-0.2 K/uL NC) Eosinophils Abs. # 0.2 LAB ABASR([place]AD[place] 0.0-0.1 K/uL NC) Basophils Abs. # 0.0 LAB NRBC#([place]ADO K/uL NC) NRBC Abs. # 0.0 LAB HY(LOINC) Hypochromia Abnormal PRESENT LAB LYPN%([place] NC) Lymphopenia % MECHANICAL LABORATORY TECHNICIAN LAB LYPN#([place]ADO NC) Lymphopenia # MECHANICAL LABORATORY TECHNICIAN LAB LYCT%([place] NC) Lymphocytosis % MECHANICAL LABORATORY TECHNICIAN LAB NEPN%([place] NC) Neutropenia % MECHANICAL LABORATORY TECHNICIAN LAB NEPN#(AMADO NC) Neutropenia # MECHANICAL LABORATORY TECHNICIAN LAB EOPH%([place]AD[place] NC) Eosinophilia % MECHANICAL LABORATORY TECHNICIAN LAB ANEM(LOIN C) Anemia MECHANICAL LABORATORY TECHNICIAN LAB PNCP(LOIN C) Pancytopenia MECHANICAL LABORATORY TECHNICIAN LAB SMLPT([place]ADO NC) Small Platelets MECHANICAL LABORATORY TECHNICIAN LAB ERCT(LOIN C) Erythocytosis MECHANICAL LABORATORY TECHNICIAN LAB MACT(LOIN C) Macrocytosis MECHANICAL LABORATORY TECHNICIAN LAB BAPH#(AMADO NC) Bosophillia # MECHANICAL LABORATORY TECHNICIAN LAB BAPH%(AMADO NC) Basophillia % MECHANICAL LABORATORY TECHNICIAN LAB LUCT(LOIN C) Leukocytosis MECHANICAL LABORATORY TECHNICIAN LAB NEPH%([place]ADO NC) Neutrophilia % MECHANICAL LABORATORY TECHNICIAN LAB NEPH#(AMADO NC) Neutrophilla # MECHANICAL LABORATORY TECHNICIAN LAB ANCT(LOIN C) Anisocytosis MECHANICAL LABORATORY TECHNICIAN LAB MICT(LOIN C) Microcytosis MECHANICAL LABORATORY TECHNICIAN LAB PKCT(LOIN C) Poikilocytosis MECHANICAL LABORATORY TECHNICIAN LAB THCT(LOIN C) Thrombocytosis MECHANICAL LABORATORY TECHNICIAN LAB THCO(LOIN C) Thrombocytopenia MECHANICAL LABORATORY TECHNICIAN LAB THCP(LOIN C) Thrombocytopenia. MECHANICAL LABORATORY TECHNICIAN LAB LRGPT(AMADO NC) Large Platelets MECHANICAL LABORATORY TECHNICIAN LAB MOCT%([place]ADO NC) Monocytosis % MECHANICAL LABORATORY TECHNICIAN LAB LUPN(LOIN C) Leukopenia MECHANICAL LABORATORY TECHNICIAN LAB LYCT#(AMADO NC) Lymphocytosis # MECHANICAL LABORATORY TECHNICIAN LAB EOPH#([place]ADO NC) Eosinophilia # MECHANICAL LABORATORY TECHNICIAN Performed By: #### CBC #### [address] [address] AMYLASE Collected: 08/15/2017 Status: F Source: [place] 9:33 PM [facility] REPOSITORY TYPE CODE TESTS RESULT OUT OF REFERENCE UNITS RANGE LAB BE(LOINC) 25-115 U/L Amylase 58 Performed By: #### BE #### [address] [address] CARDIAC ENZYMES Collected: 08/15/2017 Status: F Source: [place] 9:33 PM [facility] REPOSITORY TYPE CODE TESTS RESULT OUT OF REFERENCE UNITS RANGE LAB CPK(LOINC) 26-192 U/L Creatine 68 Kinase LAB TNI(LOINC) 0.000-0.056 ng/mL Troponin i. 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 Result Comment: Normal: <0.007 ng/mL Indeterminate: 0.007 - 0.60 ng/mL Positive: >0.60 ng/mL Performed By: #### CE #### [facility] [address] [place], [place] [address] COMPREHENSIVE METABOLIC Collected: 08/15/2017 Status: F Source: [place] PANEL 9:33 PM [facility] REPOSITORY TYPE CODE TESTS RESULT OUT OF REFERENCE UNITS RANGE LAB NA(LOINC) 132-145 mmol/L Sodium 140 LAB K(LOINC) 3.3-5.1 mmol/L Potassium 3.3 LAB CLI(LOINC) 94-110 mmol/L Chloride 103 LAB TCO2(LOINC 21-34 mmol/L ) Total Co2 28 LAB GLU(LOINC) 65-100 mg/dL Glucose High 110 LAB BUN(LOINC) 3.2-26.9 mg/dL BUN 15.5 LAB CREAT(LOIN 0.51-0.95 mg/dL C) Creatinine 0.75 LAB CA(LOINC) 8.2-10.0 mg/dL Calcium 9.1 LAB ALB(LOINC) 3.4-5.0 g/dL Albumin 3.9 LAB TP(LOINC) 6.1-8.2 g/dL Protein 7.4 LAB TBIL(LOINC 0.00-0.99 mg/dL ) Total Bilirubin 0.45 LAB ALP(LOINC) 54-112 U/L Alkaline Phosphatase 58 LAB ALT(LOINC) 13-66 U/L ALT (SGPT) 20 LAB AST(LOINC) 3-39 U/L AST (SGOT) 9 LAB AGAP(LOINC 8.0-16.0 mmol/L ) Anion Gap 12.3 LAB B-C(LOINC) 6-20 BUN/CREAT High Ratio 21 LAB A-G(LOINC) 1.1-2.5 A/G Ratio 1.1 LAB GLOB(LOINC 1.5-4.5 g/dL ) Globulin 3.5 LAB EGFR4(LOIN >60 C) EGFR Other Races >60 LAB EGFR5(LOIN >60 C) EGFR >60 Result Comment: Chronic Kidney Disease less than 60 mL/min/1.73 m2 Kidney Failure less than 15 mL/min/1.73 m2 Average estimated GFR by age: 20-29 years 116 mL/min/1.73 m2 Performed By: #### CMP #### [address] [address] LIPASE Collected: 08/15/2017 Status: F Source: [place] 9:33 [facility] REPOSITORY TYPE CODE TESTS RESULT OUT OF REFERENCE UNITS RANGE LAB LIPAS(LOINC 65-230 U/L ) Lipase 87 Performed By: #### LIPAS #### [address] [address] PROTHROMBIN TIME Collected: 08/15/2017 Status: F Source: [place] 9:33 [facility] REPOSITORY TYPE CODE TESTS RESULT OUT OF REFERENCE UNITS RANGE LAB PTI(LOINC) 9.37-11.34 sec Prothrombin High Time 12.40 LAB INR(LOINC) 2.0-3.5 ratio Low INR 1.1 Result Comment: 2.0 - 3.0 Group A 2.5 - 3.5 Group B Group A indications: Prophylaxis and treatment of venous thrombosis. Treatment of pulmonary embolism. Prevention of systemic embolism. Tissue heart valves. Acute myocardial infarction. Valvular heart disease. Atrial fibrillation. Group B indications: Mechanical prosthetic valves. . Performed By: #### PT #### [address] [address] PTT Collected: 08/15/2017 Status: F Source: [place] 9:33 [facility] REPOSITORY TYPE CODE TESTS RESULT OUT OF REFERENCE UNITS RANGE LAB PTT1(LOINC 25.2-35.7 sec ) Partial Thromboplastin Time 29.2 Performed By: #### PTT #### [address] [address] SLIDE SCAN Collected: 08/15/2017 Status: F Source: [place] 9:33 PM [facility] REPOSITORY TYPE CODE TESTS RESULT OUT OF RANGE REFERENCE UNITS LAB SCAN(LOINC) Slide see below Scan Result Comment: Scan differential performed and agrees with automated no abnormal cells seen. Performed By: #### SCAN #### [address] [address] UA W/REFLEX CULTURE Collected: 08/15/2017 Status: F Source: [place] 9:15 PM [facility] REPOSITORY TYPE CODE TESTS RESULT OUT OF REFERENCE UNITS RANGE LAB UCOLR(LOIN Yellow C) Color P. YELLOW LAB UAPP(LOINC Clear ) Appearance CLEAR LAB UGLU(LOINC Negative ) Glucose NORMAL LAB UBIL(LOINC Negative ) Bilirubin NEGATIVE LAB UKET(LOINC Negative ) Ketones NEGATIVE LAB USPG(LOINC 1.015-1.025 ) Specific [place] 1.025 LAB UBLD(LOINC Negative ) Blood NEGATIVE LAB UPH(LOINC) pH 6 LAB UPRO(LOINC Negative ) Protein NEGATIVE LAB UURO(LOINC Normal-1.0 mg/dL ) Urobilinogen NORMAL LAB UNIT(LOINC Negative ) Nitrites NEGATIVE LAB ULEU(LOINC Negative ) Leukocytes Esterase NEGATIVE Performed By: #### UARC #### [address] [address] (URINE) Collected: 08/15/2017 Status: F [facility] REPOSITORY TYPE CODE TESTS RESULT OUT OF REFERENCE UNITS RANGE LAB UPREG(LOIN Negative C) Test Negative (urine) Performed By: #### PREGU #### [address] [address] ALLERGIES ALLERGIES DATE TYPE / CODE NAME / CODE REACTION SEVERITY SOURCE 06/24/2018 Drug tramadol/[id number] Unknown [facility]416 4[facility] 9727[facility] Repository ED CT) 04/16/2015 Drug tramadol Skin Rash - UNKNOWN [facility] Allergy/416 HCl/[id number]( [facility] 600401(SNOM RXNORM) Repository ED CT) Drug TRAMADOL/353901 Moderate Brain Pomerene Allergy/416 33(RXNORM) ([facility] 334306(SNOM Modifier) Repository ED CT) (Qualifier Value) ENCOUNTERS ENCOUNTERS ADMIT/DISCHARGE ACCOUNT ADMITTING ENCOUNTER LOCATION SOURCE NUMBER CLASS 06/24/2018 [id number] Ambulatory [facility] ing:LAB Repository 06/24/2018/06/24/19 [id number] Ambulatory BMSBuilding:B [place] [address] MS.[facility] Repository 06/11/2018 [id number] Ambulatory BMSBuilding:B [place] MS.CF.[facility] Repository 06/03/2018/06/03/19 [id number] Emergency [address] ing:ED Repository 06/03/2018/06/03/19 [id number] Ambulatory [address] ing:WPOUTRoom Repository : [id number] 05/28/2018 [id number] Ambulatory Building:[facility] Repository 05/22/2018 [id number] Ambulatory [facility] ing:LAB Repository 05/22/2018/05/22/20 [id number] Ambulatory BMSBuilding:B [place] [address] MS.[facility] Repository 04/30/2018/04/30/20 [id number] Ambulatory BMSBuilding:B [place] 18 MS.[facility] Repository 03/24/2018 [id number] Ambulatory [facility] ing:PAVLAB Repository 03/24/2018/03/24/20 [id number] Ambulatory BMSBuilding:B [place] 18 MS.[facility] Repository 03/05/2018/03/05/[id number] ARIK OCONNOR [facility]: ER[facility]: [facility] Repository 09/11/2017 [id number] Ambulatory UNIBuilding:O [place] [facility] Repository 08/16/2017/08/17/19 [id number] Ambulatory CHBuilding:RA [place] 18 [facility] Repository 08/15/2017/08/16/19 [id number] Emergency CHBuilding:ED [place] Repository PAYERS PAYERS ENCOUNTER GUARANTOR PAYER SUBSCRIBER SOURCE 06/24/2018 ANKUR Cardona Primary ANKUR Cardona [place] [id number] SR Insurance:MOLINAPolicy SAVAGEDOB: [address], Number: [id number] [address]Tdd: [id number] Repository Date:9897-90-27OF [address] () [address] [place] [address]26[address]EN: 06/24/2018 Secondary NOT GIVENUNK [place] Insurance:SELF PAY [facility] Number: Effective Repository Date:2018-06-24 06/24/2018 ANKUR Cardona Primary ANKUR Cardona [place] [id number] SR Insurance:MOLINAPolicy SAVAGEDOB: [address], Number: [id number][facility] [address]Rwq: [id number] Repository Date:2025-53-90SA [address] () [address] [place] [address]CG: 06/24/2018 Secondary NOT GIVENUNK [place] Insurance:SELF PAY [facility] Number: Effective Repository Date:2018-06-18 06/11/2018 ANKUR Cardona Primary Insurance:SELF NOT GIVENUNK [place] [id number] SR PAY [address], Number: Effective [facility] [id number]: Date:2018-06-11 Repository () 06/03/2018 ANKUR Cardona Primary KENDRICK SAVAGEDOB: [place] [id number] SR Insurance:ANTHEMPolicy [id number], Number: [facility] [place] [address]Sam: [id number] Repository Date:3471-18-79BM [address] () [address], [place] [address]WF: 06/03/2018 Secondary ANKUR Cardona [place] Insurance:MOLINAPolicy SAVAGEDOB: Community Number: [id number] Hospital [id number] Repository Date:0562-51-26FR [address] [place] [address]VI: 06/03/2018 Tertiary NOT GIVENUNK [place] Insurance:SELF PAY [facility] Number: Effective Repository Date:2018-06-03 06/03/2018 ANKUR L Primary ANKUR L [place] [id number] SR Insurance:MOLINAPolicy SAVAGEDOB: [address], Number: [id number]-[facility] [address]Suc: [id number] Repository Date:7199-40-34UU [address]OX () [address], [place] [address]FR: 06/03/2018 Secondary NOT GIVENUNK [place] Insurance:SELF PAY [facility] Number: Effective Repository Date:2018-06-03 05/28/2018 ANKUR Primary KENDRICK SAVAGEDOB: [facility] SAVAGEDOB: Insurance:ANTHEMPolicy [id number] Hospital Number: 6 SR Repository SR [id number] [address] [place] [address], Date: [place] [address] [place] [address]Hki: () 05/28/2018 Secondary ANKUR [facility] Insurance:MOLINAPolicy SAVAGEDOB: Hospital Number: [id number] Repository [id number] SR Date: [address] [place] [address] 05/22/2018 ANKUR L Primary KENDRICK SAVAGEDOB: [place] [id number] SR Insurance:ANTHEMPolicy [id number], Number: [facility] [address]Ekx: [id number] Repository Date:6931-14-52QF [address]OX () [address]26[address]RVFSGOP, [place] [address]LG: 05/22/2018 Secondary ANKUR L [place] Insurance:MOLINAPolicy SAVAGEDOB: Community Number: [id number] Hospital [id number] Repository Date:6901-86-50CP [address] [place] [address]KC: 05/22/2018 Tertiary NOT GIVENUNK [place] Insurance:SELF PAY [facility] Effective Repository Date:2018-05-22 05/22/2018 ANKUR Cardona Primary KENDRICK SAVAGEDOB: [place] [id number] SR Insurance:ANTHEMPolicy [id number], Number: [facility] [address]Whe: [id number] Repository Date:1694-99-22JO BOX () [address]1766[place]GXFWKS, [place] [address]BR: 05/22/2018 Secondary ANKUR L [place] Insurance:MOLINAPolicy SAVAGEDOB: Community Number: [id number] Hospital [id number] Repository Date:8695-86-78CD [address] [place] [address]EZ: 05/22/2018 Tertiary NOT GIVENUNK [place] Insurance:SELF PAY [facility] Number: Effective Repository Date:2018-04-30 04/30/2018 ANKUR Cardona Primary KENDRICK SAVAGEDOB: [place] [id number] SR Insurance:ANTHEMPolicy [id number], Number: [facility] [address]Eli: [id number] Repository Date:9187-55-30VA [address]OX () 838087IDDUKVP, [place] [address]PQ: 04/30/2018 Secondary ANKUR L [place] Insurance:MOLINAPolicy SAVAGEDOB: Community Number: [id number] Hospital [id number] Repository Date:4100-86-49JC [address] [place] [address] 114[address]XI: 04/30/2018 Tertiary NOT GIVENUNK [place] Insurance:SELF PAY [facility] Number: Effective Repository Date:2018-04-30 03/24/2018 ANKUR L Primary KENDRICK SAVAGEDOB: [place] [id number] SR Insurance:ANTHEMPolicy [id number] [address], Number: Hospital [place] [address]Emi: [id number] Repository Date:5113-26-29VE [address] () [address] [place] [address]PE: 03/24/2018 Secondary ANKUR L [place] Insurance:MOLINAPolicy SAVAGEDOB: Community Number: [id number] Hospital [id number] Repository Date:8453-53-00IC [address] [place] [address]HT: 03/24/2018 Tertiary NOT GIVENUNK [place] Insurance:SELF PAY [facility] Number: Effective Repository Date:2018-03-24 03/24/2018 ANKUR Primary KENDRICK SAVAGEDOB: [place] [id number] SR Insurance:ANTHEMPolicy [id number] [address], Number: Hospital [place] [address]Ekh: [id number] Repository Date:7897-59-68PZ [address] () [id number] [place] [address]VM: 03/24/2018 Secondary ANKUR [place] Insurance:MOLINAPolicy SAVAGEDOB: Community Number: [id number] Hospital [id number] Repository Date:9500-27-07ST [address] [place] [address]AW: 03/24/2018 Tertiary NOT GIVENUNK [place] Insurance:SELF PAY [facility] Number: Effective Repository Date:2018-03-24 03/05/2018 ANKUR L Primary KENDRICK SAVAGEDOB: [facility] SAVAGEDOB: Insurance:ANTHEM MARCOS [id number] [address], Repository [address] [place] [address], Number: [place] [id number] [place] [id number]: [id number] Date:Plan Name:B2 () 08/16/2017 ANKUR JARAE Primary Insurance:[facility] KENDRICK BRYSONOB: [place] [address] [place] [facility] [id number] [facility] Number: [address] [place], [place] [id number] [place], [place] Repository [address]Pin: [phone]) Date:0457-56-42BK [address] [address]Kvc: () [address]27[address]PDZZZHR, [place] [phone] () [address]NS: 08/15/2017 ANKUR TARYN Primary Insurance:[facility] KENDRICK BRYSONOB: [place] [address] N [facility] [id number] [facility] Number: [address] [place], [place] [id number] 437[place], [place] Repository [address]Roj: (772) Date:6146-28-43LX [address] [address]Hbd: () 607726WVPJJFQ, [place] [phone] () [address]DM:
== END ==
PROVIDERS: Obstetrics & Gynecology; Referring Provider Nurse Practitioner Women's Health; Visit Provider Nurse Practitioner Women's Health
DX: Z34.90 Encounter for supervision of normal pregnancy, unspecified, unspecified trimester (principal)
CPT/HCPCS: 36415; 85025; 86592; 86703; 86762; 86850; 86900; 87340

== ENCOUNTER → 2018-07-24 15:59 | Outpatient (CLI) | payer MEDICAID, SELFPAY ==
[2018-07-24 15:52] VITALS: BMI 32.3
[2018-07-24 16:55] LABS: Absolute Lymphocyte Count 1.73 X10^3/ul (0.83-4.51); Absolute Neutrophil Count 10.6 X10^3/uL (2.0-7.7); Basophil# 0.01 X10^3/uL; Basophil% 0.1 % (0-1); Eosinophil# 0.13 X10^3/uL; Hematocrit 34.7 % (37-47); Hemoglobin 11.2 g/dl (12.0-15.0); Lymphocyte # 1.73 X10^3/ul (4.0); Lymphocyte % 13.1 % (19-41); Mean Corp Hgb Conc 32.3 g/gl (32-36); Mean Corpuscular Hgb 27.2 pg (27.0-32.0); Mean Corpuscular Volume 84.2 fL (81-99); Mean Platelet Vol. 9.6 fl (6.2-12.0); Monocyte# 0.58 X10^3/uL; Monocyte% 4.4 % (0-10); Neutrophil # 10.56 X10^3/uL (2.7-7.7); Neutrophil % 80.3 % (47-70); Platelet Count 244 K/mm3 (150-450); RBC Distribution Width SD 39.7 fl (35.1-43.9); Red Blood Count 4.12 M/mm3 (4.2-5.4); White Blood Count 13.2 K/mm3 (4.4-11.0)
[2018-07-24 16:56] LABS: POSITIVE COUNT NO; POSITIVE DIFFERENTIAL NO; POSITIVE MORPHOLOGY NO
[2018-07-24 17:05] LABS: Glucose Challenge Gest 1H 50g 131 mg/dL (70-140)
== END ==
PROVIDERS: Referring Provider Nurse Practitioner Women's Health; Visit Provider Nurse Practitioner Women's Health
DX: Z34.00 Encounter for supervision of normal first pregnancy, unspecified trimester (principal)
CPT/HCPCS: 36415; 82950; 85025

== ENCOUNTER → 2018-09-24 17:13 | Outpatient (CLI) | payer MEDICAID, SELFPAY ==
[2018-09-24 15:56] VITALS: BMI 37.0
== END ==
PROVIDERS: Referring Provider Obstetrics & Gynecology; Visit Provider Obstetrics & Gynecology
DX: Z34.93 Encounter for supervision of normal pregnancy, unspecified, third trimester (principal); Z3A.36 36 weeks gestation of pregnancy
CPT/HCPCS: 87081

== ENCOUNTER → 2018-10-01 16:01 | Outpatient (CLI) | payer MEDICAID, SELFPAY ==
[2018-10-01 15:40] VITALS: BMI 37.7
[2018-10-01 16:30] LABS: Protein, Urine (Random) 12.6 mg/dL (<11.9); Protein:Creat Ratio 76 mg/g CRE (0-200)
== END ==
PROVIDERS: Referring Provider Nurse Practitioner Women's Health; Visit Provider Nurse Practitioner Women's Health
DX: Z34.00 Encounter for supervision of normal first pregnancy, unspecified trimester (principal)
CPT/HCPCS: 82570; 84156

== ENCOUNTER 2018-10-01 17:40 | Observation (INO) | payer MEDICAID, SELFPAY ==
[2018-10-01 16:18] VITALS: BMI 37.7
[2018-10-01 17:07] VITALS: BMI 29.7
[2018-10-01 17:35] LABS: Hematocrit 35.3 % (37-47); Hemoglobin 11.5 g/dl (12.0-15.0); Mean Corp Hgb Conc 32.6 g/gl (32-36); Mean Corpuscular Hgb 26.2 pg (27.0-32.0); Mean Corpuscular Volume 80.4 fL (81-99); Mean Platelet Vol. 10.5 fl (6.2-12.0); Platelet Count 203 K/mm3 (150-450); RBC Distribution Width CV 13.7 % (11.6-14.6); Red Blood Count 4.39 M/mm3 (4.2-5.4); Scan Indicated on CBC? Y/N NO; White Blood Count 10.5 K/mm3 (4.4-11.0)
[2018-10-01 17:42] LABS: International Normalized Ratio 0.9; Prothrombin Time (Protime)PT. 12.1 SECONDS (11.7-14.9)
[2018-10-01 17:43] LABS: Partial Thromboplast Time 25.1 Seconds (24.1-36.2)
[2018-10-01] MEDS: Labetalol 200 MG Tablet PO (17:46)
[2018-10-01 18:05] LABS: AST(SGOT) 23 U/L (15-37); Alanine Aminotransfer ALT/SGPT 21 U/L (13-56); Creatinine, Serum 0.72 mg/dL (0.55-1.02); EST Glomerular Filtration Rate 105 mL/min (>60); Est Glom Filt Rate - Afr Amer 127 mL/min (>60); Estimated Creatinine Clearance 99.67 ml/min; Uric Acid 5.6 mg/dL (2.6-6.0)
--- NOTE | 2018-10-01 18:35 | OB.TRI.NOTE ---
History of Present Illness Date of Service: 10/01/18 Was patient seen by the physician?: Yes Reason For Visit: R/O PRE ECLAMPSIA Date of Service: 10/01/18 Final OJ: 10/21/18 Gestational age: 37 Weeks and 1 Days History of Present Illness: 23 yo female at 37 1/7 wk sent from [place] for evaluation 2/2 HTN in ofc. Cervix was checked and /-2 Pt denied any PIH sx: no SHEN, no RUQ pain. Aware of some UCs O positive RI. Allergies tramadol Allergy (Mild, Verified 10/01/18 15:41) Unknown Laboratory Studies: Laboratory Tests 10/01/18 10/01/18 10/01/18 Range/Units 17:15 17:15 17:15 WBC 10.5 (4.4-11.0) K/mm3 RBC 4.39 (4.2-5.4) M/mm3 Hgb 11.5 L (12.0-15.0) g/dl Hct 35.3 L (37-47) % MCV 80.4 L (81-99) fL MCH 26.2 L (27.0-32.0) pg MCHC 32.6 (32-36) g/gl RDW 13.7 (11.6-14.6) % RDW Differential 40.0 (35.1-43.9) fl Plt Count 203 (150-450) K/mm3 MPV 10.5 (6.2-12.0) fl PT 12.1 (11.7-14.9) SECONDS INR 0.9 APTT 25.1 (24.1-36.2) Seconds Creatinine 0.72 (0.55-1.02) mg/dL Estim Creat Clear Calc 99.67 ml/min Est GFR (MDRD) Af Amer 127 (>60) mL/min Est GFR (MDRD) Non-Af 105 (>60) mL/min Uric Acid 5.6 (2.6-6.0) mg/dL AST 23 (15-37) U/L ALT 21 (13-56) U/L Physical Exam Vitals: BPs: initially 141/95 and 155/101. Then 142/83 , 116/70. 136/81. 120/80 and 116/70. General: Alert, Oriented x3, Cooperative, No apparent distress HEENT: Atraumatic Abdomen: Soft, Gravid Presentation: Cephalic Cervix Dilation (cm): 2 - in office Station: -2 Effacement (%): 50 NST - FHR Rate Baby A Baseline: 140-150s avg variability, accels to 180s Variability:: Moderate Accelerations:: 15 x 15 Decelerations:: Variable - occasional quick variable less than 10 sec NST Reactive:: Yes FHR Category:: Category I Uterine Activity:: UCs q 2-4 mins Impression/Plan 37 1/7 wk female with elevated BP in ofc Sent in for PIH panel Spot check protein/cr WNL Bloodwork all wnl Begin 24 hr urine and continue serial BPs. Advised: Overnight stay for monitoring, lives one hour away IF labor: then to labor orders If not in labor, complete 24 hr urine and watch BPs with goal to home and rest if all WNL.
[2018-10-01] MEDS: DiphenhydrAMINE 25 MG Capsule 50 MG PO (19:04)
[2018-10-02] MEDS: Mag Hydrox/Al Hydrox/Simeth 30 ML UDC PO (00:14)
--- NOTE | 2018-10-02 07:59 | PCM.PN.BLA ---
Progress Note HD#2 PIH Admited from [place] for observatoin due to HTN at ofc visit. PIH labs all WNL, including pro/cr urine spot check. Initial BPs elevated but all since admission then WNL Last BP 111/71. Prior pressures 111/59, 116/70. 128 80 136/81 Gen: A and O NAD Abd: gravid, NT EFM 140-150s min variability at present (plans breakfast) UCs irreg and not painful q 2-5 mins + CX: deferred A/P: 37 2/7 wk observation for PIH, HTN in ofc. BPs at rest have all been WNL. Initial one dose of labetalol given. Mylanta given for (nightly) heartburn. Benadryl given for itching x one. no PIH sx. Ordering breakfast. Plans to stay until completion of 24 hr urine as she lives about an hour away. Continue observation. Plan dischg after 24 hr urine collection. F/u with Michelle Pimentel on of next week, 10/08/18, as planned.
--- NOTE | 2018-10-02 08:04 | PCM.DC ---
- Discharge Diagnoses Reason(s) for Visit for Discharge Instructions: observation for elevated blood pressure (resolved) You will use the following diet at home:: No restrictions Discharge Activity: Return to Normal Activity May resume sexual activity in: No Restrictions Lifting Restrictions: limit to 25 # or less during Call your doctor if you observe: Uncontrolled pain, - - Headache unrelieved by tylenol. severe heartburn. Persistent pain in upper right abdomen increased swelling or sudden weight gain. RETURN to hospital if: painful contractions, vaginal bleeding as a period, gush of fluid or decreased movement. Allergies/Adverse Reactions: Allergies tramadol Allergy (Mild, Verified 10/01/18 15:41) Unknown Medications to take at Discharge vitamin#30 30 mg iron-10 mg iron-folic acid 1 mg-omg3 capsule 1 cap PO DAILY cap 05/22/18 Primary Care Physician: Care Physician,No Primary [Primary Care Provider] - Test Results: Test results from this visit will be discussed in further detail at your follow-up appointment, if applicable. Please Follow Up With: Lynette Ledbetter MD When: on 10/08/18 as scheduled for your appointment. Proposed Discharge Date: 10/02/18
--- NOTE | 2018-10-02 08:07 | DCINST_ITS ---
- Discharge Diagnoses Reason(s) for Visit for Discharge Instructions: observation for elevated blood pressure (resolved) You will use the following diet at home:: No restrictions Discharge Activity: Return to Normal Activity May resume sexual activity in: No Restrictions Lifting Restrictions: limit to 25 # or less during Call your doctor if you observe: Uncontrolled pain, - - Headache unrelieved by tylenol. severe heartburn. Persistent pain in upper right abdomen increased swelling or sudden weight gain. RETURN to hospital if: painful contractions, vaginal bleeding as a period, gush of fluid or decreased movement. Allergies/Adverse Reactions: Allergies tramadol Allergy (Mild, Verified 10/01/18 15:41) Unknown Medications to take at Discharge vitamin#30 30 mg iron-10 mg iron-folic acid 1 mg-omg3 capsule 1 cap PO DAILY cap 05/22/18 Primary Care Physician: Care Physician,No Primary [Primary Care Provider] - Test Results: Test results from this visit will be discussed in further detail at your follow- up appointment, if applicable. Please Follow Up With: Lynette Ledbetter MD When: on 10/08/18 as scheduled for your appointment. Proposed Discharge Date: 10/02/18
[2018-10-02] MEDS: Prenatal Vits Tablet 1 TABLET PO (14:13)
[2018-10-02 19:44] LABS: 24HR. UA Prot. Total Volume 1000 mL; 24HR. Urine Creatinine 1.38 g/24 HR (0.70-1.90); Urine Protein (24 Hour) 12.5 mg/dL (<11.9)
--- NOTE | 2018-10-06 08:09 | PCM.DC.SUM ---
Discharge Date and Diagnosis Date of Admission: 10/01/18 Date of Discharge: 10/02/18 Hospital Course and Treatment Summary of Care Provided: 23 yo female at 37 1/7 wk sent from [place] for evaluation 2/2 HTN in ofc. Cervix was checked and 50/-2 Pt denied any PIH sx: no SHEN, no RUQ pain. Aware of some UCs Her sister with recent h/o preeclampsia and pt and her mother anxious re this. Admitted for observation and PIH labs. PIH labs all WNL. Initial BPs elevated and single dose of labetalol given po. All BPs after this were WNL. Spot prot/Cr WNL 24 hr urine collected. Pt lives 1 hr from hospital. Preferred to stay for 24 hr urine collection Sent home upon completion of 24 hr urine test. To follow up with Dr Ledbetter / Michelle Fisher as scheduled. - Physical Exam Weight: 76.3 kg Body Mass Index (BMI) 29.7 Discharge Activity: Return to Normal Activity May resume sexual activity in: No Restrictions Call your doctor if you observe: Uncontrolled pain, - - Headache unrelieved by tylenol. severe heartburn. Persistent pain in upper right abdomen increased swelling or sudden weight gain. RETURN to hospital if: painful contractions, vaginal bleeding as a period, gush of fluid or decreased movement. Home Medications: Medications to take at Discharge vitamin#30 30 mg iron-10 mg iron-folic acid 1 mg-omg3 capsule 1 cap PO DAILY cap 05/22/18 Primary Care Physician: Care Physician,No Primary [Primary Care Provider] - Please Follow Up With: Lynette Ledbetter MD When: on 10/08/18 as scheduled for your appointment. Medical Necessity - Tobacco Use Smoking Status: Never smoker Meaningful Use Info Meaningful Use Diagnoses (Choose all that apply): None applicable
== END 2018-10-02 17:55 | disposition home or self-care (01) ==
LOC: WP 10-02 08:48 → WPOUT 10-02 10:00 → WP 10-02 10:00
PROVIDERS: Admitting Provider Obstetrics & Gynecology; Referring Provider Obstetrics & Gynecology; Visit Provider Obstetrics & Gynecology
DX: O13.3 Gestational [pregnancy-induced] hypertension without significant proteinuria, third trimester (principal); Z3A.37 37 weeks gestation of pregnancy
CPT/HCPCS: 82565; 82570; 84156; 84450; 84460; 84550; 85027; 85610; 85730; 99218; G0378

== ENCOUNTER → 2018-10-16 16:15 | Outpatient (CLI) | payer MEDICAID, SELFPAY ==
[2018-10-16 15:59] VITALS: BMI 29.7
[2018-10-16 16:31] LABS: Protein, Urine (Random) 13.6 mg/dL (<11.9); Protein:Creat Ratio 106 mg/g CRE (0-200)
== END ==
PROVIDERS: Referring Provider Obstetrics & Gynecology; Visit Provider Obstetrics & Gynecology
DX: O10.919 Unspecified pre-existing hypertension complicating pregnancy, unspecified trimester (principal); O16.9 Unspecified maternal hypertension, unspecified trimester; Z3A.00 Weeks of gestation of pregnancy not specified
CPT/HCPCS: 82570; 84156

== ENCOUNTER → 2018-10-16 16:46 | Outpatient (CLI) | payer MEDICAID, SELFPAY ==
[2018-10-16 15:59] VITALS: BMI 29.7
[2018-10-16 17:07] LABS: Absolute Lymphocyte Count 2.17 X10^3/ul (0.83-4.51); Absolute Neutrophil Count 7.2 X10^3/uL (2.0-7.7); Basophil# 0.02 X10^3/uL; Basophil% 0.2 % (0-1); Eosinophil# 0.06 X10^3/uL; Eosinophils% 0.6 % (0-5); Hematocrit 36.1 % (37-47); Hemoglobin 11.7 g/dl (12.0-15.0); Lymphocyte # 2.17 X10^3/ul (4.0); Lymphocyte % 21.7 % (19-41); Mean Corp Hgb Conc 32.4 g/gl (32-36); Mean Corpuscular Hgb 25.9 pg (27.0-32.0); Monocyte# 0.57 X10^3/uL; Monocyte% 5.7 % (0-10); Neutrophil # 7.15 X10^3/uL (2.7-7.7); Neutrophil % 71.4 % (47-70); Platelet Count 209 K/mm3 (150-450); RBC Distribution Width CV 13.7 % (11.6-14.6); RBC Distribution Width SD 39.4 fl (35.1-43.9); Red Blood Count 4.51 M/mm3 (4.2-5.4)
[2018-10-16 17:13] LABS: POSITIVE COUNT NO; POSITIVE DIFFERENTIAL NO; POSITIVE MORPHOLOGY NO
[2018-10-16 17:33] LABS: ALB/GLOB Ratio 0.7 RATIO (0.9-2.4); AST(SGOT) 23 U/L (15-37); Alanine Aminotransfer ALT/SGPT 20 U/L (13-56); Albumin, Serum 2.8 g/dL (3.2-5.0); Alkaline Phosphatase 148 U/L (45-117); Anion Gap 7 (5-15); BUN 11 mg/dL (7-18); BUN/Creat Ratio 13.5 RATIO (10-20); Calcium,Total 9.4 mg/dL (8.5-10.1); Chloride 107 mmol/L (98-107); Creatinine, Serum 0.82 mg/dL (0.55-1.02); EST Glomerular Filtration Rate 92 mL/min (>60); Est Glom Filt Rate - Afr Amer 111 mL/min (>60); Globulin 4.1 g/dL (2.2-4.2); Glucose 65 mg/dL (74-106); Potassium 4.1 mmol/L (3.5-5.1); Protein, Total 6.9 g/dL (6.4-8.2); Sodium Level 137 mmol/L (136-145)
== END ==
PROVIDERS: Referring Provider Obstetrics & Gynecology; Visit Provider Obstetrics & Gynecology
DX: I10 Essential (primary) hypertension (principal)
CPT/HCPCS: 36415; 80053; 82570; 84156; 85025

== ENCOUNTER 2018-10-16 18:40 | Inpatient (IN) | payer MEDICAID, SELFPAY ==
[2018-09-24 15:56] VITALS: BMI 37.0
[2018-10-16 15:59] VITALS: BMI 29.7
[2018-10-16 18:20] VITALS: BMI 38.2
[2018-10-16] MEDS: Lactated Ringers 1,000 ML 50 ML IV ×2 (19:10→22:57)
[2018-10-16 20:31] LABS: ROM Internal Control Test YES-OK TO RESULT pt. (Internal QC); ROM Patient Test Negative (Negative)
[2018-10-16] MEDS: Oxytocin 30 units/NS 500 ml 30 UNITS/500 ML IV.SOLN IV (20:59)
[2018-10-16 21:22] VITALS: PULSE 99
[2018-10-16] MEDS: 0.9% Saline Lock 10 ML Syringe IV (21:24)
[2018-10-16 22:08] VITALS: PULSE 122
[2018-10-16] MEDS: Magnesium Sulfate 20 GM/500 ML BAG IV (22:11)
--- NOTE | 2018-10-16 22:22 | HP.PCM_ITS ---
- Problem List (1) Severe preeclampsia Status: Acute (2) Status: Acute Qualifiers: Comment: nl NIPT. carrier screening declined. anatomy scan ordered. Follow up scan 07/31/18 normal- no echogenic intracardiac focus was seen. (3) Supervision of normal first Status: Acute Qualifiers: Comment: PRR OJ 10/21/18 Girl Rmaya Tom Fiance:Hilario Bartholomew History Date of Admission: 10/01/18 Final OJ: 10/21/18 Gestational age: 39 Weeks and 2 Days History of this : This is a 23 year-old, , at 39 weeks 2 days gestational age presents with elevated blood pressures going into the severe range of 160s to 170s over 90s to 100s. Patient has had intermittent headache throughout the day that has resolved with Tylenol at times. Urine was negative for protein and all labs are within normal limits but blood pressures persisted to be elevated. Patient denies any vaginal bleeding or loss of fluid admits irregular contractions and good movement. Allergies tramadol Allergy (Severe, Verified 10/16/18 18:43) Unknown numbness on left side of body labetalol Allergy (Mild, Verified 10/16/18 18:43) Itching Home Medications: Home Medications vitamin#30 30 mg iron-10 mg iron-folic acid 1 mg-omg3 capsule 1 cap PO DAILY cap MDD 05/22/18 Famotidine [Pepcid] 20 mg PO PRN PRN 10/16/18 Smoking Status: Never smoker Alcohol: None Number of Fetus(es): 1 Heart Tracin-130 moderate variability reactive no decelerations category I tracing [place]: regular History Past Pregnancies: Past Pregnancies Delivery Date Name GA/Weeks Outcome Route Weight Gender Labor Length Anesthesia Delivery Location Provider FOB Labs: Mom's Labs & Results 10/16/18 10/16/18 10/16/18 19:10 19:10 19:47 WBC Cancelled Corrected WBC Cancelled RBC Cancelled Hgb Cancelled Hct Cancelled MCV Cancelled MCH Cancelled MCHC Cancelled RDW Cancelled RDW Differential Cancelled Plt Count Cancelled MPV Cancelled Immature Gran % (Auto) Cancelled Neut % (Auto) Cancelled Lymph % (Auto) Cancelled [place] % (Auto) Cancelled Eos % (Auto) Cancelled Baso % (Auto) Cancelled Immature Gran # (Auto) Cancelled Absolute Neuts (auto) Cancelled Absolute Lymphs (auto) Cancelled Absolute Monos (auto) Cancelled Total Counted Cancelled Neutrophils % (Manual) Cancelled Band Neutrophils % Cancelled Lymphocytes % (Manual) Cancelled Monocytes % (Manual) Cancelled Eosinophils % (Manual) Cancelled Basophils % (Manual) Cancelled Metamyelocytes % Cancelled Myelocytes % Cancelled Promyelocytes % Cancelled Blast Cells % Cancelled Plasma Cell % (Manual) Cancelled Other Cells % Cancelled Lymphocytes # Cancelled Nucleated RBCs/100 WBC Cancelled Differential Comment Cancelled Diff Path Review Cancelled Hypersegmented Neuts Cancelled Atypical Lymphocytes Cancelled Reactive Lymphocytes Cancelled Smudge Cells Cancelled Eosinophilia # Cancelled Basophilia # Cancelled Toxic Granulation Cancelled Dohle Bodies Cancelled Betsy Rods Cancelled Platelet Estimate Cancelled Plt Morphology Comment Cancelled RBC Morphology Cancelled Polychromasia Cancelled Hypochromasia Cancelled Poikilocytosis Cancelled Basophilic Stippling Cancelled Anisocytosis Cancelled Microcytosis Cancelled Macrocytosis Cancelled Spherocytes Cancelled Sickle Cells Cancelled Target Cells Cancelled Tear Drop Cells Cancelled Ovalocytes Cancelled Stomatocytes Cancelled Amor-Grill Bodies Cancelled [place] Cells Cancelled Bite Cells Cancelled Acanthocytes (Spur) Cancelled Rouleaux Cancelled Schistocytes Cancelled Vag Amniotic Fld Detect Negative Blood Type O POSITIVE Antibody Screen NEGATIVE Course Did the patient receive Yes care? Labs Blood Type: O RH: POSITIVE RPR/VDRL/Syphilis Nonreactive Rubella status Immune HbSAg Negative Date Done: 06/24/18 Chlamydia Negative Gonorrhea Negative HIV/AIDS Non-Reactive Group B Strep: Negative Current Obstetrical History Gestational Diabetes No Incompetent Cervix No Infertility No Hypertension/Pre-eclampsia Yes Placenta Previa/Abruption No PTL/PROM No Uterine anomaly No Oligohydramnios No Polyhydramnios No Multiple gestation No Past Medical History Asthma No Diabetes No Hypertension No Heart disease No Mitral valve prolapse No Neurologic/Seizure disorder/ No Migraines Kidney disease No Liver disease No Varicosities No Clotting disorders/Hx of DVT No Thyroid Dysfunction No Other medical diseases No Psychiatric disorders No Major trauma No Abnormal PAP smear Yes: HPV Sleep apnea No Mammogram in the last 2 years No Social History Marital Status: SINGLE Alleged father Hilario Bartholomew Hx Smoking No Smoking Status Never smoker How long have you used n/a substances (years)? What date/time did you last n/a use any of the above? Have you had any previous n/a inpatient or outpatient treatment Expected Infant Delivery Method: Spontaneous Vaginal Review of Systems Constitutional: Denies: Fever, Malaise Eyes: Denies: Blurred vision, Vision Change HEENT: Reports: Head Aches. Denies: Visual Changes Cardiovascular: Denies: Chest Pain, Palpitations Respiratory: Denies: Cough, Shortness of Breath, Wheezing Gastrointestinal: Reports: Abdominal Pain, Nausea. Denies: Diarrhea, Vomiting Genitourinary: Denies: Dysuria, Hematuria Musculoskeletal: Denies: Joint Pain, Muscle pain Skin: Denies: Lesions, Rash Neurological: Reports: Headaches. Denies: Blurred vision, Focal weakness Psychiatric: Denies: Anxiety, Depression Endocrine: Denies: Heat/ Cold Intolerance Hematologic/ Lymphatic: Denies: Easy Bruising, Easy Bleeding Physical Exam Vitals: Vital Signs Pulse 122 H 10/16/18 22:08 General: Alert, Cooperative, No apparent distress HEENT: Atraumatic, Normocephalic. Negative for: Thyromegaly, Lymphadenopathy Cardiovascular: Regular rate Lungs: Normal air movement Abdomen: Soft, Non Tender, Gravid Neurological: Deep Tendon Reflexes 2+/4 and Symmetrical, Neuro grossly intact. Negative for: Clonus MANAGER WELLNESS: Normal external genitalia. Negative for: Vulvar lesions Estimated gestational size: Appropriate for gestational size Presentation: Cephalic Cervix Dilation (cm): 3 Station: -1 Effacement (%): 80 Assessment/Plan All Active Problems (Last Reviewed 10/16/18 @ 15:59 by Sofia Martines) Severe preeclampsia (Acute) (Acute) Supervision of normal first (Acute) Abdominal pain affecting (Resolved) This is a 23 year-old, at 39 weeks gestational age presents IOL severe preeclampsia Patient presents IOL, plan management for , pitocin/AROM clear fluid. Pain management: Plans epidural. GBS negative. Management of any complications: Magnesium sulfate started for seizure prophylaxis, hydralazine used for severe blood pressures per hypertensive esthela col I have reviewed the [facility] and made any clinically relevant updates.
[2018-10-16] MEDS: fentaNYL-bupivacaine (epidural) 100 ML BAG EPIDURAL (23:32)
[2018-10-17] VITALS (13 sets, daily range): BP systolic 119–153; BP diastolic 67–85; PULSE 92–131; RESP 16–22; TEMP 36.2–36.9; O2SAT 96–99
[2018-10-17] MEDS: Lactated Ringers 1,000 ML 50 ML IV ×2 (02:23→07:41)
[2018-10-17] MEDS: Ondansetron 4 MG/2 ML Vial IV ×3 (03:50→11:01)
[2018-10-17] MEDS: fentaNYL-bupivacaine (epidural) 100 ML BAG EPIDURAL ×2 (04:59→09:47)
[2018-10-17] MEDS: Mag Hydrox/Al Hydrox/Simeth 30 ML UDC PO (06:20)
[2018-10-17] MEDS: Magnesium Sulfate 20 GM/500 ML BAG IV ×2 (07:41→18:23)
--- NOTE | 2018-10-17 08:48 | PCM.PN.BLA ---
Progress Note Patient had increased pain with contractions and was redosed with the epidural. Still 9 cm and Pitocin increase in position changed. heart tones category 1 tracing 120s to 130s moderate variability reactive no decelerations toco adequate contractions expectant management
[2018-10-17] MEDS: hydrALAZINE 10 MG Tablet PO (09:10)
--- NOTE | 2018-10-17 11:30 | NURSING ---
pt educated on need and benefit of within first hour of life. pt states that she does not feel like she can feed her baby right now and asks if we can wait a minute
[2018-10-17] MEDS: Oxytocin 30 units/NS 500 ml 30 UNITS/500 ML IV.SOLN 334 UNITS IV (11:48)
--- NOTE | 2018-10-17 12:08 | PCM.OPRPT ---
Problem List (1) Severe preeclampsia Status: Acute (2) Status: Acute Qualifiers: Comment: nl NIPT. carrier screening declined. anatomy scan ordered. Follow up scan 07/31/18 normal- no echogenic intracardiac focus was seen. (3) Supervision of normal first Status: Acute Qualifiers: Comment: PRR OJ 10/21/18 Girl Ramya Tom Fiance:Hilariolissette Bartholomew Vaginal Delivery Maternal Presentation: Medically Indicated Induction - severe preeclampsia iol 39 weeks severe preeclampsia Method of Induction: Pitocin Amniotic Membrane Rupture Type: Artificial Amniotic Fluid Description: Clear Final OJ: 10/21/18 Gestational age: 39 Weeks and 3 Days Date of Procedure: 10/17/18 Pre-Operative Diagnosis: iol Post-Operative Diagnosis: same Surgery/ Procedure Performed: Spontaneous Vaginal Delivery Type of Anesthesia: Epidural Description of Procedure: Patient began pushing and after 2 hours there was maternal exhaustion and patient developed recurrent late decelerations and therefore a vacuum was applied at the +3 station 2 pulles were made with 2 contractions and no pop offs and she delivered the head in the OMAR presentation. The head was delivered atraumatically and a loose nuchal cord ?1 was identified and easily reduced over the 's head. The anterior and posterior shoulders delivered without complication followed by the rest of the infant and the infant was placed on the maternal abdomen. Delayed cord clamping was employed for approximately 60 seconds. Cord was clamped and cut and gentle traction was applied to the cord and the placenta delivered spontaneously immediately following it was noted to be intact with three-vessel cord. The perineum and vagina were inspected and noted to have a second-degree perineal laceration was repaired in the usual fashion with 3-0 Vicryl repeat. EBL was 500 cc. Patient and infant tolerated delivery well. Presentation: OMAR Placental Delivery Description: Spontaneous Placenta Disposition: [facility] Cord Vessel Description: 3 Vessels Cord Entanglement: None Estimated Blood Loss: 500 A gender: Female Episiotomy Description: None Laceration: Perineal Extension/lac, 2nd degree Medications given after delivery: IV Pitocin Complications: None
[2018-10-17] MEDS: Oxytocin 30 units/NS 500 ml 30 UNITS/500 ML IV.SOLN 167 UNITS IV (12:18)
--- NOTE | 2018-10-17 13:00 | NURSING ---
yu catheter was removed during delivery per Dr. Ledbetter. pt has not been up to void since delivery
[2018-10-17] MEDS: proCHLORPERazine 10 MG/2 ML Vial IV (13:04)
--- NOTE | 2018-10-17 14:05 | NURSING ---
pt states she needs to stand up. pt helped up to bathroom x3 assist. pt's legs swaying slightly. when pt is helped onto toilet she states she feels very weak and needs to go back to bed. pt does not void at this time. pt helped back to bed x3 assist. upon returning to bed yu catheter inserted to obtain accurate I&O.
--- NOTE | 2018-10-17 14:30 | NURSING ---
pt resting quietly with eyes closed. no s/s distress
[2018-10-17] MEDS: LORazepam 1 MG Tablet PO (15:29)
[2018-10-17] MEDS: Naproxen 250 MG Tablet 500 MG PO (16:28)
[2018-10-17] MEDS: Lactated Ringers 1,000 ML 20 ML IV (20:07)
[2018-10-18] VITALS (14 sets, daily range): BP systolic 113–133; BP diastolic 66–82; PULSE 91–108; RESP 14–20; TEMP 36.5–37.2; O2SAT 96–99
[2018-10-18] MEDS: Naproxen 250 MG Tablet 500 MG PO ×3 (01:50→20:55)
[2018-10-18] MEDS: Magnesium Sulfate 20 GM/500 ML BAG IV (05:07)
[2018-10-18 05:57] LABS: ALB/GLOB Ratio 0.7 RATIO (0.9-2.4); AST(SGOT) 29 U/L (15-37); Alanine Aminotransfer ALT/SGPT 20 U/L (13-56); Albumin, Serum 2.1 g/dL (3.2-5.0); Alkaline Phosphatase 102 U/L (45-117); Anion Gap 7 (5-15); BUN 12 mg/dL (7-18); BUN/Creat Ratio 12.4 RATIO (10-20); Calcium,Total 7.8 mg/dL (8.5-10.1); Chloride 106 mmol/L (98-107); Creatinine, Serum 0.97 mg/dL (0.55-1.02); EST Glomerular Filtration Rate 75 mL/min (>60); Est Glom Filt Rate - Afr Amer 91 mL/min (>60); Estimated Creatinine Clearance 73.98 ml/min; Globulin 3.2 g/dL (2.2-4.2); Glucose 95 mg/dL (74-106); Potassium 4.2 mmol/L (3.5-5.1); Protein, Total 5.3 g/dL (6.4-8.2); Sodium Level 138 mmol/L (136-145)
[2018-10-18 06:15] LABS: Hematocrit 26.6 % (37-47); Hemoglobin 8.6 g/dl (12.0-15.0); Mean Corp Hgb Conc 32.3 g/gl (32-36); Mean Corpuscular Hgb 25.7 pg (27.0-32.0); Mean Corpuscular Volume 79.6 fL (81-99); Mean Platelet Vol. 10.7 fl (6.2-12.0); Platelet Count 199 K/mm3 (150-450); RBC Distribution Width CV 14.5 % (11.6-14.6); RBC Distribution Width SD 41.1 fl (35.1-43.9); Red Blood Count 3.34 M/mm3 (4.2-5.4); White Blood Count 16.7 K/mm3 (4.4-11.0)
--- NOTE | 2018-10-18 06:25 | PCM.PN.OB ---
Patient Problems: Active and Suspected Problems (Last Reviewed 10/16/18 @ 15:59 by Sofia Martines) Severe preeclampsia (Acute) Subjective: patient had anxiety overnight no cp sob had some changes in vision but bps are WNL. - Physical Exam General: Alert, Oriented x3 Vital Signs Temp Pulse Resp BP Pulse Ox 97.7 F L 95 16 133/77 H 99 10/18/18 05:09 10/18/18 05:09 10/18/18 05:09 10/18/18 05:09 10/18/18 05:09 Oxygen Delivery Method Room Air Weight: 216 lb Body Mass Index (BMI) 38.2 Intake and Output for Last 24 Hours 10/16/18 10/17/18 10/18/18 23:59 23:59 23:59 Intake Total 5991 / 5991 470 / 470 Output Total 1748 / 1748 945 / 945 Balance 4243 / 4243 -475 / -475 Laboratory Tests Past 24 Hrs 10/18/18 10/18/18 05:15 05:15 WBC Pending RBC Pending Hgb Pending Hct Pending MCV Pending MCH Pending MCHC Pending RDW Pending RDW Differential Pending Plt Count Pending Sodium 138 Potassium 4.2 Chloride 106 Carbon Dioxide 25.0 Anion Gap 7 BUN 12 Creatinine 0.97 Estim Creat Clear Calc 73.98 Est GFR (MDRD) Af Amer 91 Est GFR (MDRD) Non-Af 75 BUN/Creatinine Ratio 12.4 Glucose 95 Calcium 7.8 L Total Bilirubin 0.40 AST 29 ALT 20 Alkaline Phosphatase 102 Total Protein 5.3 L Albumin 2.1 L Globulin 3.2 Albumin/Globulin Ratio 0.7 L Medical Necessity - Tobacco Use Smoking Status: Never smoker Assessment/Plan All Active Problems (Last Reviewed 10/16/18 @ 15:59 by Sofia Martines) Severe preeclampsia (Acute) (Acute) Supervision of normal first (Acute) Abdominal pain affecting (Resolved) s/p PPD # 1 1. routine post delivery care 2. breast feeding- support given 3. rh positive 4. rubella immune 5. preeclampsia- magnesium sulfate x 24hrs and labs this am
[2018-10-18 06:31] LABS: Scan Indicated on CBC? Y/N NO
--- NOTE | 2018-10-18 08:05 | NURSING ---
perineum edematous. ice pack applied
[2018-10-18] MEDS: Senna/Docusate Sodium 1 Tablet PO (15:22)
[2018-10-18] MEDS: 0.9% Saline Lock 10 ML Syringe IV (15:22)
[2018-10-19 02:31] VITALS: BP 126/69; PULSE 96; RESP 18; TEMP 37
[2018-10-19] MEDS: 0.9% Saline Lock 10 ML Syringe IV (02:40)
[2018-10-19] MEDS: Naproxen 250 MG Tablet 500 MG PO (05:08)
[2018-10-19 08:45] VITALS: BP 130/73; PULSE 98; RESP 14; TEMP 36.5
[2018-10-19] MEDS: Senna/Docusate Sodium 1 Tablet PO (08:45)
--- NOTE | 2018-10-19 10:15 | PCM.PN.OB ---
Patient Problems: Active and Suspected Problems (Last Reviewed 10/16/18 @ 15:59 by Sofia Martines) Severe preeclampsia (Acute) Subjective: doing well no complaints pain controlled no CP SOB N V ambulating well tolerating po lochia moderate, going well - Physical Exam Vital Signs Temp Pulse Resp BP Pulse Ox 97.7 F L 98 14 130/73 H 98 10/19/18 08:45 10/19/18 08:45 10/19/18 08:45 10/19/18 08:45 10/18/18 15:30 Oxygen Delivery Method Room Air Weight: 216 lb Body Mass Index (BMI) 38.2 Intake and Output for Last 24 Hours 10/17/18 10/18/18 10/19/18 23:59 23:59 23:59 Intake Total 5991 / 5991 1260 / 1260 Output Total 1748 / 1748 2305 / 2305 Balance 4243 / 4243 -1045 / -1045 Medical Necessity - Tobacco Use Smoking Status: Never smoker Assessment/Plan All Active Problems (Last Reviewed 10/16/18 @ 15:59 by Sofia Martines) Severe preeclampsia (Acute) (Acute) Supervision of normal first (Acute) Abdominal pain affecting (Resolved) s/p PPD # 2 1. routine post delivery care 2. breast feeding- support given 3. rh positive 4. rubella immune 5. preeclampsia- magnesium sulfate x 24hrs and labs norml, nl bps
--- NOTE | 2018-10-19 10:17 | DCINST_ITS ---
Discharge Diet: No Restrictions Discharge Activity: Return to Normal Activity, May not drive while taking narcotic pain medications., May Shower May resume sexual activity in: 4-6 weeks Call your doctor if your incision/area has: Continuous Slow Oozing, Sudden Increased Bleeding, Increased Pain/ Swelling, Increased Redness, Foul Smelling Discharge Additional Instructions: If you experience any of the following, contact your healthcare provider. * Bleeding that soaks a pad every hour for 2 hours * Fever 100.4 or higher * Unrelieved incision or abdominal pain * Swelling, redness, discharge or bleeding from your incision or episiotomy site * Your incision begins to separate * Problems urinating (including inability to urinate or burning while urinating). * Visual changes * Severe headache * Flu-like symptoms * Pain or redness in one of both of your breasts * Pain, warmth, tenderness or swelling in your legs, especially the calf area * Frequent nausea and vomiting * Symptoms of depression or anxiety If you experience any of the following, call 911 or go to the nearest Emergency Room. * Chest pain * Problems breathing * Seizure activity * Partial or complete paralysis of a body part, slurred speech, weakness or drooping of the face, or a sudden inability to walk or hold your balance Allergies/Adverse Reactions: Allergies tramadol Allergy (Severe, Verified 10/16/18 18:43) Unknown numbness on left side of body labetalol Allergy (Mild, Verified 10/16/18 18:43) Itching Medications to take at Discharge vitamin#30 30 mg iron-10 mg iron-folic acid 1 mg-omg3 capsule 1 cap PO DAILY cap MDD 05/22/18 Famotidine [Pepcid] 20 mg PO PRN PRN 10/16/18 Please Follow Up With: Lynette Ledbetter MD - [phone] When: Call to make an appointment with your doctor in 6 weeks. If you had elevated Blood pressure or 4th degree laceration you will need to be seen in 2 weeks. Primary Care Physician: Care Physician,No Primary [Primary Care Provider] - Test Results: Test results from this visit will be discussed in further detail at your follow- up appointment, if applicable.
[2018-10-19 14:11] VITALS: BP 141/80; PULSE 102; RESP 14; TEMP 36.6
--- NOTE | 2018-10-24 14:09 | NURSING ---
Mother doing well. Mother decided to pump only and feed. She will call if wants to try latching again. States all the nurses were great.
== END 2018-10-19 15:00 | disposition home or self-care (01) | DRG 560 ==
LOC: WP 10-17 08:59 → WPOUT 10-19 09:29
PROVIDERS: Admitting Provider Obstetrics & Gynecology; Referring Provider Obstetrics & Gynecology; Visit Provider Obstetrics & Gynecology
DX: O14.14 Severe pre-eclampsia complicating childbirth (principal); O16.4 Unspecified maternal hypertension, complicating childbirth; O70.1 Second degree perineal laceration during delivery; O75.81 Maternal exhaustion complicating labor and delivery; O76 Abnormality in fetal heart rate and rhythm complicating labor and delivery; O69.81X0 Labor and delivery complicated by cord around neck, without compression, not applicable or unspecified; Z3A.39 39 weeks gestation of pregnancy; Z37.0 Single live birth
CPT/HCPCS: 59025; 59050; 80053; 84112; 85027; 86850; 86900; 94760; 99218; J7120; A4216; G0378; J2405

== ENCOUNTER → 2018-11-02 13:18 | Outpatient (CLI) | payer MEDICAID, SELFPAY ==
[2018-11-02 12:24] VITALS: BMI 38.2
== END ==
PROVIDERS: Referring Provider Nurse Practitioner Women's Health; Visit Provider Nurse Practitioner Women's Health
DX: R30.0 Dysuria (principal)
CPT/HCPCS: 87086; 87088

== ENCOUNTER → 2018-11-24 15:50 | Outpatient (CLI) | payer MEDICAID, SELFPAY ==
[2018-11-24 15:43] VITALS: BMI 38.2
[2018-11-24 16:12] LABS: Absolute Lymphocyte Count 2.19 X10^3/ul (0.83-4.51); Absolute Neutrophil Count 6.2 X10^3/uL (2.0-7.7); Basophil# 0.01 X10^3/uL; Basophil% 0.1 % (0-1); Eosinophil# 0.14 X10^3/uL; Eosinophils% 1.6 % (0-5); Hematocrit 36.5 % (37-47); Hemoglobin 11.5 g/dl (12.0-15.0); Lymphocyte # 2.19 X10^3/ul (4.0); Lymphocyte % 24.3 % (19-41); Mean Corp Hgb Conc 31.5 g/gl (32-36); Mean Corpuscular Hgb 24.9 pg (27.0-32.0); Mean Platelet Vol. 9.4 fl (6.2-12.0); Monocyte# 0.49 X10^3/uL; Monocyte% 5.4 % (0-10); Neutrophil # 6.18 X10^3/uL (2.7-7.7); Neutrophil % 68.5 % (47-70); Platelet Count 272 K/mm3 (150-450); RBC Distribution Width CV 13.7 % (11.6-14.6); RBC Distribution Width SD 38.9 fl (35.1-43.9); Red Blood Count 4.62 M/mm3 (4.2-5.4)
[2018-11-24 16:16] LABS: POSITIVE COUNT NO; POSITIVE DIFFERENTIAL NO; POSITIVE MORPHOLOGY NO
== END ==
PROVIDERS: Referring Provider Nurse Practitioner Women's Health; Visit Provider Nurse Practitioner Women's Health
DX: R53.83 Other fatigue (principal); N89.8 Other specified noninflammatory disorders of vagina
CPT/HCPCS: 36415; 85025; 87070; 87205

== ENCOUNTER → 2021-05-09 | Outpatient (CLI) | payer MEDICAID, SELFPAY ==
[2021-05-14 23:17] LABS: HPV Reflexed? NOT INDICATED
== END | disposition home or self-care (01) ==
LOC: LABSPEC 16:33
PROVIDERS: Visit Provider Nurse Practitioner Women's Health
DX: Z12.4 Encounter for screening for malignant neoplasm of cervix (principal)
CPT/HCPCS: 88175; G0145

== ENCOUNTER → 2024-06-30 | Outpatient (CLI) | payer MEDICAID, SELFPAY ==
[2024-07-05 13:16] LABS: HPV Reflexed? NOT INDICATED
== END | disposition home or self-care (01) ==
PROVIDERS: Referring Provider Nurse Practitioner Women's Health; Visit Provider Nurse Practitioner Women's Health
DX: Z12.4 Encounter for screening for malignant neoplasm of cervix (principal)
CPT/HCPCS: 88175; G0145